=== PATIENT | male | born 1935 | race Caucasian/White ===

== ENCOUNTER 2025-04-22 14:23 | Outpatient (CLI) | payer OTHER, SELFPAY ==
--- NOTE | ~2025-04-22 | CT_ITS ---
CT sinus wo con Ordering provider: Shaw So M.D. History: . 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 Comparison: None. Technique: Thin slice Scans CT of the paranasal sinuses was performed with coronal and sagittal refor matted images. No IV contrast. . Automated exposure control and iterative reconstruction technique w ere employed. The dose-length product was 320.10 mGy-cm. Findings: NASAL SEPTUM: midline. OSTEOMEATAL UNITS: Bilaterally patent. 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 PARANASAL SINUSES: Minimal mucosal thickening in the right maxillary sinus. 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 VISUALIZED MASTOIDS: Normal as visualized. BONES: Normal. SUPERFICIAL SOFT TISSUES/VISUALIZED BRAIN PARENCHYMA: Normal. 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 Right maxillary sinus disease. Reviewed, dictated and finalized at location A.
--- OUTSIDE RECORDS SUMMARY | 2025-04-22 14:33 | XMS_ITS | Clinical Summary ---
Author Organization [facility] Address [address] [place] [id number] Care Team Providers Care Sustainability Purchasing Agent Name Role Phone Sowmya Esquivel MD Primary Care Provide r Hansel Moon MD Unavailable [phone] Malik Zazueta MD Unavailable [phone] Josiah Sauceda MD Unavailable Allergies Active Allergy Reactions Criticality Noted Date Comments Anti-Allergy Medication Vision changes Medium 07/09/20 22 Blurred vision Cetirizine Headache Low 03/18/2023 Codeine Rash Medium Medications calcium citrate 250 mg calcium tablet tablet Take 2.52 tablets (630 mg total) by mouth daily Active tamsulosin (FLOMAX) 0.4 mg extended release capsule Take 1 capsule (0.4 mg total) by mouth nightly Active fluticasone propionate (FLONASE) 50 mcg/actuation nasal spray Administer 1 spray into each nostril daily Active cyanocobalamin, vitamin B-12, 1,000 mcg tablet extended release Take 2,000 mcg by mouth nightly Active albuterol HFA (PROVENTIL HFA,VENTOLIN HFA,PROAIR HFA) 90 mcg/actuation inhaler Inhale 2 puffs 4 (four) times a day as needed for wheezing Active acetaminophen (TYLENOL) 325 mg tablet Take 2 tablets (650 mg total) by mouth every 6 (six) hours as needed for pain Active omeprazole (PriLOSEC) 40 mg capsule Take 1 capsule (40 mg total) by mouth daily Active atorvastatin (LIPITOR) 80 mg tablet Take 1 tablet (80 mg total) by mouth daily Active apixaban (ELIQUIS) 2.5 mg tablet Take 1 tablet (2.5 mg total) by mouth 2 (two) times a day 180 tablet 1 03/04/20 24 Active simethicone (Gas Relief 80, simethicone,) 80 mg chewable tablet Take 1 tablet (80 mg total) by mouth every 6 (six) hours as needed for flatulence Active cholecalciferol (VITAMIN D-3) 2000 unit tablet Take 1 tablet (2,000 Units total) by mouth daily Active ferrous sulfate 325 mg (65 mg of elemental iron) tabletIndicatio ns:Iron Deficiency Anemia Take 1 tablet (65 mg of elemental iron total) by mouth daily Active amiodarone (PACERONE) 200 mg tabletIndicatio ns:Cardioversio n of Atrial Fibrillation Take 1 tablet (200 mg total) by mouth daily 90 tablet 3 07/02/20 24 Active aspirin 81 mg enteric coated tabletIndicatio ns:Myocardial Reinfarction Prevention Take 1 tablet (81 mg total) by mouth daily Active dilTIAZem CD (CARDIZEM CD) 300 mg 24 hr capsule Take 1 capsule (300 mg total) by mouth daily 30 capsule 11/25/20 24 Active potassium chloride ER (KLOR-CON) 20 mEq CR tablet Take 2 tablets (40 mEq total) by mouth daily 20 tablet 12/03/19 25 Active furosemide (LASIX) 40 mg tabletIndicatio ns:Essential hypertension Take 1 tablet (40 mg total) by mouth 2 (two) times a day 180 tablet 12/14/19 25 Active oxyCODONE (ROXICODONE) 5 mg immediate release tabletIndicatio ns:Pain Take 1 tablet (5 mg total) by mouth every 4 (four) hours as needed for pain 30 tablet 03/31/20 25 Active oxyCODONE (ROXICODONE) 5 mg immediate release tabletIndicatio ns:Pain Take 1 tablet (5 mg total) by mouth every 4 (four) hours as needed for pain 30 tablet 03/31/20 25 2024 Discontinued sulfamethoxazol e-trimethoprim (BACTRIM DS) 800-160 mg per tablet Take 1 tablet (160 mg of trimethoprim total) by mouth daily for 7 days 7 tablet 03/31/20 25 2024 Discontinued sulfamethoxazol e-trimethoprim (BACTRIM DS) 800-160 mg per tablet Take 1 tablet (160 mg of trimethoprim total) by mouth daily for 7 days 7 tablet 03/31/20 25 2024 Active Problems Problem Noted Date Diagnosed Date Impotence of organic origin 02/24/2025 Penoscrotal webbing 02/24/2025 Hydrocele 02/24/2025 Other low back pain 01/19/2025 Other seborrheic keratosis 01/17/2025 Spinal stenosis, cervical region 10/19/2024 Tachycardia-bradycardia syndrome 10/19/2024 Atherosclerotic heart diseas e of [place] coronary artery without angina pectoris 10/14/2024 Benign essential hypertension 10/14/2024 Assessment & Plan (11/23/2024 8:47 AM POULTRY TRIMMER): Stable continue Lasix Gastroesophageal reflux disease 10/14/2024 Obstructive sleep apnea syndrome 10/14/2024 Overview (10/14/2024): Aug 25, 2017 Entered By: HERMINIA KIRKPATRICK Comment: CPAP Actinic keratosis 08/13/2024 Allergic rhinitis 08/13/2024 Benign neoplasm of colon 08/13/2024 Overview (08/13/2024): Feb 24, 2018 Entered By: HERMINIA KIRKPATRICK Comment: remote prior to 2002Feb 24, 2018 Entered By: HERMINIA KIRKPATRICK Comment: colo 2012 - no polyps [place] 08/13/2024 Edema, unspecified 08/13/2024 Exposure to potentially hazardous substance 08/01 Ingrowing nail 08/13/2024 Iron deficiency anemia 08/13/2024 Neoplasm of unspecified beha vior of bone, soft tissue, and skin 08/13/2024 Patient's other noncomplianc e with medication regimen for other reason 08/13/2024 Prediabetes 08/13/2024 Shoulder pain 08/13/2024 Spinal stenosis 08/13/2024 Spondylolysis of cervical spine 08/13/2024 Overview (08/13/2024): Dec 08, 2018 Entered By: HERMINIA KIRKPATRICK Comment: neurosurgery eval - would be big surgery - last resort Sprain of right thumb 08/13/2024 Stable angina 08/13/2024 Tinea unguium 08/13/2024 Vitamin D deficiency 08/13/2024 Acute kidney injury 06/11/2024 Assessment & Plan (06/11/2024 10:42 PM CDT): New concern Not at goal Repeat cmp in 2 weeks along with urinalysis and albumin cr urine ratio Paroxysmal atrial fibrillation 05/29/2024 Assessment & Plan (06/10/2024 12:53 PM CDT): S/p cardioversion Continue management as per cardiology Acute on chronic diastolic heart failure 024 Atrial flutter 03/04/2024 Bronchitis 02/18/2024 Bloody sputum 02/18/2024 Chronic atrial fibrillation 01/14/2024 Assessment & Plan (03/09/2025 12:32 PM CDT): Chronic Stable Continue rate control and AC Continue following with cardiology for management Assessment & Plan (10/14/2024 2:34 PM POULTRY TRIMMER): >>ASSESSMENT AND PLAN FOR PERSISTENT ATRIAL FIBRILLATION (HCC) WRITTEN ON 03/08/2024 12:01 PM BY SOWMYA ESQUIVEL MD Chronic Stable Continue rate control and AC Continue following with cardiology for management Assessment & Plan (10/14/2024 2:34 PM POULTRY TRIMMER): >>ASSESSMENT AND PLAN FOR PERSISTENT ATRIAL FIBRILLATION (HCC) WRITTEN ON 09/07/2024 9:57 PM BY SOWMYA ESQUIVEL MD Chronic Stable Continue rate control and AC Continue following with cardiology for management Assessment & Plan (01/25/2024 9:15 PM POULTRY TRIMMER): Continue following with cardiology for management On eliquis as per cardiology Laryngopharyngeal reflux (LPR) 09/03/2023 Assessment & Plan (09/03/2023 3:18 PM CDT): Continue omeprazole in the morning Start Pepcid 40 mg at bedtime Flonase 2 sprays into each nostril while looking down over the sink, do not sniff in or blow nose after use for at least 30 minutes daily 50 ounces of caffeine free and soda free fluid daily Other chronic sinusitis 09/03/2023 Assessment & Plan (03/10/2025 2:05 PM CDT): Chronic stable Referred to ENT in the past Assessment & Plan (01/26/2024 2:04 PM POULTRY TRIMMER): CT of the sinus reviewed No acute sinus infection Will refer to ENT, would like to see Dr. Wolf in [place] Assessment & Plan (09/03/2023 6:06 PM CDT): Continue omeprazole in the morning Start Pepcid 40 mg at bedtime Flonase 2 sprays into each nostril while looking down over the sink, do not sniff in or blow nose after use for at least 30 minutes daily 50 ounces of caffeine free and soda free fluid daily Erectile dysfunction 04/23/2023 Assessment & Plan (04/23/2023 4:26 PM CDT): Declines viagra and cialis as he has some at home without improvement Will refer to urology for further recommendations Bilateral carotid artery stenosis 03/28/2023 Assessment & Plan (04/22/2024 1:37 PM CDT): Bilateral carotid artery stenosis maintains compliance with medications remains asymptomatic. Follow-up in 1 year with carotid duplex. Assessment & Plan (03/08/2024 12:03 PM CDT): Stable / clinically quiescent. Will continue to monitor. Follows with vascular surgery Assessment & Plan (10/09/2023 2:42 PM POULTRY TRIMMER): Moderate 50-69% stenosis of bilateral carotid arteries. Continue risk factor modification with ASA statin therapy in good blood pressure control. Follow-up in 6 months. Assessment & Plan (06/11/2023 7:06 AM CDT): Stable / clinically quiescent. Will continue to monitor. Follows with cardiology Assessment & Plan (03/28/2023 1:46 PM CDT): History of moderate bilateral carotid stenosis. He maintains compliance with medications. Continues to deny any slurred speech, amaurosis fugax or unilateral neurological deficits. Plan: Follow-up in 6 months with carotid duplex. Chronic pain of right knee 03/21/2023 Assessment & Plan (12/06/2023 9:18 PM POULTRY TRIMMER): Worsening Recommend following up with pain management Assessment & Plan (04/03/2023 12:04 PM CDT): Xray showed arthritis Physical therapy in the past did not help Cannot do nsaids since he is on asa and plavix No improvement with tylenol arthritis Will place referral to pain management for possible injections F/u prn Assessment & Plan (03/21/2023 11:34 AM CDT): Worsening Will get xrays of the knee Already did physical therapy If xray unremarkable will do mri and possibly send to ortho F/u in 2 weeks Dizziness 01/14/20[address] lung nodules on CT 09/21/2022 Overview (03/09/2025): Resolved on ct in 03/2023 Acute blood loss anemia 09/21/2022 GI bleed 09/21/2022 GIB (gastrointestinal bleeding) 09/20/2022 AAA (abdominal aortic aneurysm) without rupture 08/30/2022 Assessment & Plan (03/09/2025 12:31 PM CDT): S/p repair Continue medical management Continue following with [facility] surgery Assessment & Plan (11/23/2024 8:47 AM POULTRY TRIMMER): Status post endovascular abdominal aortic aneurysm repair, doing well with no evidence of endoleak on his imaging. Continue ongoing surveillance with repeat aortoiliac duplex in 1 year. Assessment & Plan (04/22/2024 1:36 PM CDT): Status post repair currently measuring 5.6 cm on CTA 04/08/2024. No evidence of leak on CTA. Follow up in 6 months for routine surveillance with abdominal pelvic CTA. Assessment & Plan (03/08/2024 12:03 PM CDT): S/p repair Continue medical management Continue following with cardiology. Assessment & Plan (06/11/2023 7:05 AM CDT): S/p repair Continue medical management Continue following with cardiology. Assessment & Plan (09/05/2022 4:50 PM CDT): S/p repair Continue medical management Continue following with cardiology. Has appointment in October. H/O placement of stent in an terior descending branch of left coronary artery 08/02/2022 Assessment & Plan (03/08/2024 12:02 PM CDT): Stable Continue following with cardiology Assessment & Plan (06/12/2023 11:39 AM CDT): Stable Continue following with cardiology Coronary artery disease of n ative artery of [place] heart with stable angina pectoris 08/01/2022 Assessment & Plan (03/09/2025 12:33 PM CDT): S/p 3 stents Continue ASA and plavix Continue medication management Continue following with cardiology Assessment & Plan (03/08/2024 12:02 PM CDT): S/p 3 stents Continue ASA and plavix Continue medication management Continue following with cardiology Assessment & Plan (06/11/2023 7:06 AM CDT): S/p 3 stents Continue ASA and plavix Continue medication management Continue following with cardiology Assessment & Plan (12/09/2022 9:14 PM POULTRY TRIMMER): S/p 3 stents Continue ASA and plavix Continue medication management Continue following with cardiology Abnormal stress test 07/19/2022 PAD (peripheral artery disease) 07/19/2022 Assessment & Plan (03/09/2025 12:34 PM CDT): Stable / clinically quiescent. Will continue to monitor. Continue asa plavix and statin Assessment & Plan (09/07/2024 9:57 PM CDT): Stable / clinically quiescent. Will continue to monitor. Continue asa plavix and statin Assessment & Plan (03/08/2024 12:02 PM CDT): Stable / clinically quiescent. Will continue to monitor. Continue asa plavix and statin Assessment & Plan (06/11/2023 7:07 AM CDT): Stable / clinically quiescent. Will continue to monitor. Continue asa plavix and statin Mixed hyperlipidemia 03/29/2022 Assessment & Plan (03/09/2025 12:34 PM CDT): Stable / clinically quiescent. Will continue to monitor. Continue atorvastatin Assessment & Plan (11/23/2024 8:47 AM POULTRY TRIMMER): Stable continue Lipitor Assessment & Plan (03/08/2024 12:02 PM CDT): Stable / clinically quiescent. Will continue to monitor. Continue atorvastatin Assessment & Plan (10/09/2023 2:42 PM POULTRY TRIMMER): Stable continue Lipitor 80 mg. Assessment & Plan (06/11/2023 7:06 AM CDT): Stable / clinically quiescent. Will continue to monitor. Continue atorvastatin Assessment & Plan (12/09/2022 9:15 PM POULTRY TRIMMER): Stable / clinically quiescent. Will continue to monitor. Continue atorvastatin Palpitations 03/29/2022 Family history of coronary artery disease 2021 Cigarette nicotine dependence in remission 03/29 Aortic calcification 03/29/2022 Aneurysm of left internal iliac artery Assessment & Plan (04/22/2024 1:24 PM CDT): Stable measuring 1.5 cm Plan: Follow-up six-month CTA abdomen and pelvis Assessment & Plan (03/13/2022 12:22 PM CDT): Assessment/plan: 1.5 cm left hypogastric aneurysm. This will need lifelong surveillance. Assessment & Plan (02/06/2022 1:06 PM POULTRY TRIMMER): Assessment/plan: CT abdomen pelvis as above. If he needs intervention for his abdominal aortic aneurysm this will be addressed at the same time. Chronic bronchitis 12/27/2021 Assessment & Plan (03/09/2025 12:38 PM CDT): Stable Continue albuterol p.r.n., Tussin DM p.r.n., and breztri Assessment & Plan (12/15/2024 10:16 AM POULTRY TRIMMER): Chronic condition, stable at this time but recent acute exacerbation Recommend switching to Breztri from Advair to prevent future exacerbations. Pt advised of MOA of this medication, which is pending insurance approval. Continue PRN albuterol Consider repeat Pulm evaluation if no change. Assessment & Plan (03/08/2024 12:04 PM CDT): Stable Continue albuterol p.r.n., Tussin DM p.r.n., Advair Diskus Assessment & Plan (06/12/2023 11:41 AM CDT): Stable Continue albuterol p.r.n., Tussin DM p.r.n., Advair Diskus Assessment & Plan (12/27/2021 11:03 AM POULTRY TRIMMER): Stable Continue albuterol p.r.n., Tussin DM p.r.n., Advair Diskus Abdominal aortic aneurysm (AAA) 12/27/2021 Overview (08/13/2024): Aug 29, 2022 Entered By: TIANNA NGUYEN Comment: 5.3 cm; Planned repair by Dr. Chavez in fall 2021. Assessment & Plan (10/09/2023 2:42 PM POULTRY TRIMMER): Status post EVAR, on his last year evaluation had no evidence of endoleak. Questionable endoleak with minimal sac expansion however not completely visualized. Continue ongoing surveillance with repeat CT abdomen pelvis in 6 months. Assessment & Plan (03/28/2023 1:44 PM CDT): History of EVAR 08/30/2022. Patient continues to recover well maintains compliance with medications. Denies any abdominal flank or back pain or claudication pain. Recent CT done at an outside facility and discussed with Dr. Jack Pritchard. No endoleak noted at the previous CT scan there is also a stable 1.5 cm aneurysms left internal iliac artery that was noted. Discussed the patient with Dr. Jack Pritchard. Plan: Follow-up in 6 months with a repeat CTA of the abdomen and pelvis for routine surveillance. Assessment & Plan (12/10/2022 5:29 PM POULTRY TRIMMER): Stable Status post an endovascular surgery Continue following with vascular surgery and continue with medical management Assessment & Plan (09/25/2022 4:35 PM CDT): Status post endovascular abdominal aortic aneurysm repair. Doing well since surgery. CTA abdomen pelvis recently done at [facility] for his GI bleed, no evidence of endoleak. We will plan for follow-up in 6 months. Assessment & Plan (04/03/2022 1:38 PM CDT): CTA showing 5.2cm aneurysm Following with Dr. Pritchard and in the process of getting surgery. Assessment & Plan (03/13/2022 12:21 PM CDT): Assessment/plan: 5.3 cm saccular infrarenal abdominal aortic aneurysm. Risks benefits alternatives to endovascular aneurysm repair were discussed with the patient. Risks including bleeding, infection, perforation, contrast induced nephropathy, embolization/thrombosis, mesenteric ischemia, pelvic lower extremity ischemia, NM, stroke and . He wished to proceed. I have consulted Dr. Chavez for cardiac risk assessment. Assessment & Plan (02/06/2022 1:06 PM POULTRY TRIMMER): Assessment/plan: Roughly 5 cm abdominal aortic aneurysm found on routine screening. CT abdomen pelvis ordered for further evaluation. I discussed management options for AAA including intervention at 5 5.5 cm. He will follow-up in 1-[address] scan. Recommend statin therapy. Assessment & Plan (12/27/2021 11:09 AM POULTRY TRIMMER): Seen on CT of the lumbar spine History of smoking increases risk Ultrasound of the abdomen ordered Encounter for wellness examination 12/27/2021 Assessment & Plan (03/09/2025 12:41 PM CDT): Labs pending [facility] 1 year for annual Assessment & Plan (03/08/2024 3:42 PM CDT): Recent lipid bmp and cbc reviewed Repeat cbc for low hgb and order a1c He [facility] F/u in 1 year for annual Assessment & Plan (12/10/2022 5:32 PM POULTRY TRIMMER): Ordered CBC, cmp, lipid, hgb a1c, TSH w/ reflex to t4 [facility] Zoster vaccine-encourage patient to go to local pharamacy F/u in 1 year for annual Assessment & Plan (12/27/2021 11:20 AM POULTRY TRIMMER): reviewed CBC, cmp Ordered lipid, hgb a1c, HIV, hep c, and TSH Flu completed Colonoscopy referral given F/u in 1 year for annual Lumbar radiculopathy 01/13/2016 Assessment & Plan (12/27/2021 11:04 AM POULTRY TRIMMER): Was recently in the hospital for back pain Given Decadron and [place] Referral to pain management given 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 04/16/2015 Chronic pain 04/16/2015 Assessment & Plan (03/09/2025 12:37 PM CDT): Cont following with pain management Assessment & Plan (02/24/2025 12:59 PM CDT): Follows with pain management Going for spinal cord stimulation Assessment & Plan (12/27/2021 11:04 AM POULTRY TRIMMER): Due to cervical disc herniation and lumbar radiculopathy Referral to pain management given Osteoarthritis of cervical spine without myelopa thy 04/16/2015 Assessment & Plan (12/27/2021 11:03 AM POULTRY TRIMMER): Stable Continue with naproxen as needed Impingement syndrome of shoulder region 04/16/20 15 Fatigue 04/11/2015 Assessment & Plan (06/12/2023 11:43 AM CDT): resolved Glaucoma 04/11/2015 Wears eyeglasses 04/11/2015 Wears dentures 04/11/2015 Essential hypertension 04/11/2015 Assessment & Plan (03/10/2025 1:58 PM CDT): Bp in the office today BP Readings from Last 1 Encounters: 03/10/25 110/78 Continue current regimen of hctz 25mg daily metoprolol 25mg daily Recommend DASH diet, heart-healthy lifestyle, exercise. Discussed the risks of hypertension. Follow-up in 6 months Assessment & Plan (12/15/2024 10:17 AM POULTRY TRIMMER): BP Readings from Last 3 Encounters: 12/14/24 140/58 11/26/24 130/52 11/17/24 153/59 Chronic, stable, and at goal at today's visit. Continue regimen of cardizem 300mg daily, lasix 40mg daily as Rx. Recommend heart-healthy diet and regular exercise advanced as tolerated with ease of breathing. Assessment & Plan (09/09/2024 11:57 AM CDT): Bp in the office today BP Readings from Last 1 Encounters: 09/09/24 126/66 Continue current regimen of hctz 25mg daily metoprolol 25mg daily Recommend DASH diet, heart-healthy lifestyle, exercise. Discussed the risks of hypertension. Follow-up in 6 months Assessment & Plan (06/11/2024 10:44 PM CDT): Bp in the office today BP Readings from Last 1 Encounters: 06/11/24 116/56 Continue current regimen of hctz 25mg daily metoprolol 25mg daily Recommend DASH diet, heart-healthy lifestyle, exercise. Discussed the risks of hypertension. Follow-up in 6 months Assessment & Plan (03/08/2024 3:28 PM CDT): Bp in the office today BP Readings from Last 1 Encounters: 03/08/24 120/60 Continue current regimen of hctz 25mg daily metoprolol 25mg daily Recommend DASH diet, heart-healthy lifestyle, exercise. Discussed the risks of hypertension. Follow-up in 6 months Assessment & Plan (06/12/2023 11:40 AM CDT): Bp in the office today BP Readings from Last 1 Encounters: 06/12/23 160/72 Continue current regimen of hctz 25mg daily metoprolol 25mg daily Recommend DASH diet, heart-healthy lifestyle, exercise. Discussed the risks of hypertension. Follow-up in 6 months Assessment & Plan (12/10/2022 5:30 PM POULTRY TRIMMER): Bp in the office today BP Readings from Last 1 Encounters: 09/27/22 124/78 Continue current regimen Recommend DASH diet, heart-healthy lifestyle, exercise. Discussed the risks of hypertension. Follow-up in 6 months Assessment & Plan (08/06/2022 10:08 PM CDT): Bp in the office today BP Readings from Last 1 Encounters: 08/06/22 126/72 Continue current regimen Recommend DASH diet, heart-healthy lifestyle, exercise. Discussed the risks of hypertension. Assessment & Plan (04/03/2022 1:37 PM CDT): Bp in the office today BP Readings from Last 1 Encounters: 04/03/22 132/80 Continue current regimen of HCTZ 25mg daily Recommend DASH diet, heart-healthy lifestyle, exercise. Discussed the risks of hypertension. Assessment & Plan (03/13/2022 12:22 PM CDT): Hydrochlorothiazide Assessment & Plan (02/06/2022 1:07 PM POULTRY TRIMMER): Assessment/plan: Hydrochlorothiazide Assessment & Plan (12/27/2021 11:20 AM POULTRY TRIMMER): Bp in the office today BP Readings from Last 1 Encounters: 12/27/21 130/76 at goal Continue current regimen of Hydrochlorothiazide 25 mg Recommend DASH diet, heart-healthy lifestyle, exercise. Discussed the risks of hypertension. F/u in 3 months Productive cough 04/11/2015 Assessment & Plan (12/06/2023 9:18 PM POULTRY TRIMMER): New concern Not at goal Covid and flu negative Start z pack Recommend fluids, rest, humidification if needed. He was instructed to call back if symptoms do not improved in a week, or if worsening ones arise. Education provided. F/u prn RILEY (dyspnea on exertion) 04/11/2015 Heartburn 04/11/2015 Assessment & Plan (12/27/2021 11:05 AM POULTRY TRIMMER): Stable / clinically quiescent. Will continue to monitor. Continue omeprazole 40 mg daily Hiatal hernia 04/11/2015 Assessment & Plan (03/08/2024 3:44 PM CDT): Chronic Worsening symptoms Interested in a referral to surgery Referral palced Assessment & Plan (12/27/2021 11:05 AM POULTRY TRIMMER): Stable / clinically quiescent. Will continue to monitor. Increased frequency of urination 04/11/2015 Arthritis 04/11/2015 Muscle pain 04/11/2015 Bruises easily 04/11/2015 Numbness and tingling sensation of skin 04/11/20 15 Cervicalgia 04/11/2015 Assessment & Plan (09/05/2022 4:54 PM CDT): worsening Tramadol sent to help until he gets in with pain management on Friday Myocardial ischemia Gastroesophageal reflux disease without esophagi tis Assessment & Plan (03/08/2024 12:03 PM CDT): Stable Continue omeprazole Assessment & Plan (06/11/2023 7:08 AM CDT): Stable Continue omeprazole Assessment & Plan (12/09/2022 9:16 PM POULTRY TRIMMER): Stable Continue omeprazole Benign prostatic hyperplasia with nocturia Assessment & Plan (03/09/2025 12:36 PM CDT): stable Continue flomax as per urology Assessment & Plan (06/12/2023 11:41 AM CDT): stable Continue flomax Obstructive sleep apnea on CPAP Assessment & Plan (03/09/2025 12:40 PM CDT): Stable Continue cpap Assessment & Plan (03/08/2024 12:05 PM CDT): Stable Continue cpap Moderate persistent asthma without complication Assessment & Plan (03/08/2024 12:04 PM CDT): Continue albuterol as needed Assessment & Plan (06/11/2023 7:08 AM CDT): Continue albuterol as needed Assessment & Plan (12/10/2022 5:31 PM POULTRY TRIMMER): Continue albuterol as needed Class 1 obesity due to exces s calories with serious comorbidity and body mass index (BMI) of 33.0 to 33.9 in adult Assessment & Plan (02/24/2025 3:47 PM CDT): He was counseled on the importance of maintaining a healthy weight and the risks of obesity. Weight loss recommended. Assessment & Plan (08/13/2024 3:36 PM CDT): Wt Readings from Last 3 Encounters: 08/13/24 100.8 kg (222 lb 4.8 oz) 07/02/24 100.7 kg (222 lb) 06/11/24 99.7 kg (219 lb 12.8 oz) Body mass index is 31.9 kg/m . -Stable, not at goal of <30 bmi -Discussed recommendations for exercise at least 30 minutes moderate to vigorous exercise as tolerated most days of the week. (minimum 150 minutes weekly) -Discussed importance of well-balanced diet Assessment & Plan (06/11/2023 7:08 AM CDT): He was counseled on the importance of maintaining a healthy weight and the risks of obesity. Weight loss recommended. Encourage 150min/ week of exercise Encourage 1500 calories in a day for weight loss History of asbestosis Overview (05/21/2024): History of asbestosis - (Added by TW Conv) Obesity (BMI 30-39.9) Resolved Problems Problem Noted Date Diagnosed Date Resolved Date Preop examination 02/24/2025 03/09/2025 Assessment & Plan (02/24/2025 4:05 PM CDT): He understands that no procedure is risk-free but accepts those as discussed during OV and wishes to proceed. He was instructed to contact us if any new symptoms or problems arise between now and surgery date. According to the RCRI, the patient's number of risk factors stratifies patient to class I, which carries a 6% risk of major cardiovascular complications Recent labs reviewed stable He is medically optimized for surgery. This clearance is valid for the next 30 days from today He will need clearance from his radar tester Obesity 10/19/2024 03/09/2025 Erectile dysfunction 10/14/2024 025 Overview (10/14/2024): Sep 16, 2022 Entered By: TIANNA NGUYEN Comment: on isosorbide. Cannot take PDE5- i Hyperlipidemia 10/14/2024 03/09/2025 Unspecified atrial fibrillation 10/14/2024 10/14/2024 Benign prostatic hyperplasia 08/13/2024 03/09/2025 Prediabetes 08/13/2024 03/09/2025 Essential (primary) hypertension 03/04/2024 03/09/2025 COPD exacerbation 01/15/2024 03/09/2025 Lower respiratory infection 04/03/2023 03/09/2025 Assessment & Plan (08/14/2024 11:56 AM CDT): -new complaint, one-week onset -patient reports symptoms of congestion, sinus pressure, fatigue, malaise, rattle in chest, productive cough with yellow to brown phlegm -denies significant shortness of breath, fever, headache, earache -OTC medication provided minimal relief -chest x-ray ordered for evaluation of infectious process -Augmentin Z-Silvino prescribed -Tessalon Perles and prednisone course prescribed for cough and wheezing -encouraged patient to reach out to office if not improved -continue current treatment plan Assessment & Plan (04/03/2023 12:05 PM CDT): S/p [address] referral to ENT F/u prn URI with cough and congestion 03/12/2023 03/09/2025 Assessment & Plan (03/21/2023 11:26 AM CDT): S/p z pack Wheezing on exam Instructed to take his inhaler advair two times a day but also do the albuterol every 6 hours for a day and then go to as needed Sent augmentin to the pharmacy twice a day for 10 days F/u prn Assessment & Plan (03/12/2023 11:02 AM CDT): Recommend fluids, rest, humidification if needed. He was instructed to call back if symptoms do not improved in a week, or if worsening ones arise. Education provided. covid and flu swab negative Azithromycin sent to [facility] given lung exam F/u in 1 week Hospital discharge follow-up 09/05/2022 02/24/2025 Assessment & Plan (01/25/2024 9:15 PM POULTRY TRIMMER): Med list reviewed problem list reviewed Follow up appointments discussed Assessment & Plan (09/05/2022 4:51 PM CDT): Med list reviewed problem list reviewed Follow up appointments discussed Encounter for pre-operative cardiovascular clearance 08/06/2022 03/09/2025 Assessment & Plan (08/06/2022 10:09 PM CDT): Medications reviewed and up to date Arteriosclerosis of coronary artery 08/01/2022 10/14/2024 Overview (08/13/2024): Aug 29, 2022 Entered By: TIANNA NGUYEN Comment: PCI to proximal-mid LAD - Dr. Aguiar Prostate enlargement 12/27/2021 025 Assessment & Plan (12/27/2021 11:07 AM POULTRY TRIMMER): Stable / clinically quiescent. Will continue to monitor. Continue tamsulosin 0.4 mg nightly Itch 04/11/2015 03/09/2025 Encounters Date Type Department Care Team Description 04/13/2025 1:00 PM CDT Clinical Support [facility] Cardiology [facility] [address] [phone] Coronary artery disease of [place] artery of [place] heart with stable angina pectoris (Primary Dx); Atrial fibrillation with rapid ventricular response (HCC); Infrarenal abdominal aortic aneurysm (AAA) without rupture; Acute on chronic diastolic heart failure (HCC) 04/05/2025 Telephone [facility] Cardiology [facility] [address] [phone] Hansel Moon MD 03/31/2025 2:05 PM CDT Anesthesia Event [facility] Operating Room [facility] [place] [address] Dana Lan MD 03/31/2025 1:10 PM CDT - 03/31/2025 4:10 PM CDT Surgery [facility] Operating Room [facility] [place] [address] Josiah Sauceda MD Insertion of Malleable Penile Prosthesis 03/31/2025 11:41 AM CDT - 04/02/2025 3:06 PM CDT Hospital Encounter [address] [phone] Josiah Sauceda MD Discharge Disposition: Discharge to home or self care 03/22/2025 12:56 PM CDT - 03/22/2025 11:59 PM CDT Hospital Encounter [address] [address] Radiculopathy, thoracic region Discharge Disposition: Discharge to home or self care 03/22/2025 Telephone [facility] Pre Anesthesia Testing [address] [place] [phone] Tianna Lowery 03/21/[address] [address] Haley Cuello 03/10/2025 2:00 PM CDT Office Visit [facility] Primary Care at [address] [place] [phone] Sowmya Pruitt MD Encounter for wellness examination (Primary Dx); Infrarenal abdominal aortic aneurysm (AAA) without rupture; Chronic atrial fibrillation (HCC); Coronary artery disease of [place] artery of [place] heart with stable angina pectoris; Essential hypertension; Mixed hyperlipidemia; PAD (peripheral artery disease); Benign prostatic hyperplasia with nocturia; Other chronic pain; Simple chronic bronchitis (HCC); Multiple lung nodules on CT; Obstructive sleep apnea on CPAP; Other chronic sinusitis 03/01/2025 1:52 PM CDT - 03/01/2025 11:59 PM CDT Hospital Encounter [facility] [address] [place] [phone] Pre-op evaluation Discharge Disposition: Discharge to home or self care 03/01/2025 1:45 PM CDT - 03/01/2025 11:59 PM CDT Hospital Encounter [facility] Cardiology [address] [place] [phone] Rickettsialpox due to rickettsia akari Discharge Disposition: Discharge to home or self care 03/01/2025 1:40 PM CDT Lab [address] [phone] 02/24/2025 3:30 PM CDT Office Visit [facility] Medical [facility] Primary Care at [address] [phone] Sowmya Pruitt MD Preop examination (Primary Dx); Other chronic pain; Class 1 obesity due to excess calories with serious comorbidity and body mass index (BMI) of 33.0 to 33.9 in adult 02/22/2025 Telephone [facility] Primary Care at [address] [phone] Claduia Martinez MA Medical Question/Miscellaneous 01/31/2025 12:25 PM POULTRY TRIMMER Lab [address] [phone] Coronary artery disease of [place] artery of [place] heart with stable angina pectoris; Atrial fibrillation with rapid ventricular response (HCC); Infrarenal abdominal aortic aneurysm (AAA) without rupture; Mixed hyperlipidemia; Benign essential hypertension; Obstructive sleep apnea syndrome; Abdominal aortic aneurysm (AAA) without rupture, unspecified part 01/31/2025 Orders Only [facility] Cardiology [address] [place] [phone] Hansel Moon MD Coronary artery disease of [place] artery of [place] heart with stable angina pectoris (Primary Dx); Atrial fibrillation with rapid ventricular response (HCC); Infrarenal abdominal aortic aneurysm (AAA) without rupture; Mixed hyperlipidemia; Benign essential hypertension; Obstructive sleep apnea syndrome; Abdominal aortic aneurysm (AAA) without rupture, unspecified part 01/31/2025 Telephone [facility] Cardiology [address] [place] [phone] Hansel Moon MD 01/28/2025 4:00 PM POULTRY TRIMMER Lab [facility] Lab [address] [place] [phone] 01/28/2025 12:04 PM POULTRY TRIMMER - 01/28/2025 11:59 PM POULTRY TRIMMER Hospital Encounter [facility] Nuclear Medicine [address] [place] [phone] Discharge Disposition: Discharge to home or self care 01/28/2025 12:04 PM POULTRY TRIMMER - 01/28/2025 11:59 PM POULTRY TRIMMER Hospital Encounter [facility] Nuclear Medicine [address] [place] [phone] Discharge Disposition: Discharge to home or self care 01/28/2025 12:04 PM POULTRY TRIMMER - 01/28/2025 11:59 PM POULTRY TRIMMER Hospital Encounter [facility] Nuclear Medicine [address] [place] [phone] Discharge Disposition: Discharge to home or self care 01/28/2025 12:04 PM POULTRY TRIMMER - 01/28/2025 11:59 PM POULTRY TRIMMER Hospital Encounter [facility] Nuclear Medicine [address] [place] [phone] Coronary artery disease of [place] artery of [place] heart with stable angina pectoris; Atrial fibrillation with rapid ventricular response (HCC); Infrarenal abdominal aortic aneurysm (AAA) without rupture; Acute on chronic diastolic heart failure (HCC); Mixed hyperlipidemia; Benign essential hypertension; Obesity (BMI 30-39.9); Obstructive sleep apnea syndrome; Preoperative cardiovascular examination Discharge Disposition: Discharge to home or self care from Last 3 Months Immunizations Immunization Administration Dates Next Due COVID-19 MRNA (MODERNA) .5 M L (50 MCG) VACCINE (12 YEARS AND UP) 09/17/2023 Influenza, Quad, Adjuvantate d, Intramuscular 09/16/2022,09/13/2021 Influenza, Quadrivalent, Hig h Dose, Preservative Free, Intrr 09/17/2023 Influenza, Quadrivalent, Spl it, Preservative Free, Intramuscular 08/24/2019,08/26/2018 Influenza, Trivalent, High D ose, Split, Preservative Free, Intramuscular 09/09/2024,08/25/2017 Influenza, Trivalent, Preser vative Free, Intramuscular 08/23/2016,08/24/2015 Influenza, Unspecified 10/01/2022,2021(Deferred: Patient Refused),08/06/2022(Deferred: Patient Refused),08/31/2021,09/26/2014, 013,09/01/2012,08/31/2008,08/31/2007,1 01/15/2006,11/28/2003 Moderna SARS-CoV-2 Monovalen t Vaccination (12+ YRS) 03/03/2021,02/04/2021 Pneumococcal Conjugate PCV 13 02/14/2015 Pneumococcal Conjugate, Unspecified 08/06/2022(D eferred: Patient Refused) Pneumococcal, Unspecified 02/20/2004 Td, Unspecified 09/26/2014,06/28/2004 Tdap 09/16/2022 ZOSTER LIVE 11/07/2016 ZOSTER Recombinant 04/20/2018,01/18/2017 Surgical History Surgery Date Site/Laterality Comments UT APPENDECTOMY Appendectomy - (Added by TW Conv) UT NEUROPLASTY &/TRANSPOS MEDIAN NRV CARPAL TUNNE Neuroplasty Decompression Median Nerve At Carpal Tunnel - (Added by TW Conv) ROTATOR CUFF REPAIR Rotator Cuff Repair - bilater (Added by TW Conv) GALLBLADDER SURGERY CYST REMOVAL on neck and leg NOSE SURGERY broken ABDOMINAL SURGERY Bilateral mesh , hernia repair CORONARY ANGIOPLASTY WITH STENT PLACEMENT 07/01/2022 - 07/31/2022 with 3 stent placed REPAIR THORACIC AORTA Medical History Medical History Date Comments Gastroesophageal reflux disease GERD Osteoarthritis Osteoarthritis Hypertension Hypertension Hyperlipidemia Hyperlipidemia Disorder of liver Liver disease Personal history of other di seases of the respiratory system History of bronchitis - (Add ed by TW Conv) Contact with and (suspected) exposure to asbestos Asbestos exposure - (Added b y TW Conv) Personal history of other di seases of the respiratory system History of asbestosis - (Add ed by TW Conv) Asthma Prostate enlargement Ringing in ears Sinus problem Hernia of anterior abdominal wall Rhinitis URI (upper respiratory infection) Sleep apnea wears cpap Wears dentures Ambulates with cane Enlarged prostate Pulmonary nodules ED (erectile dysfunction) Obesity (BMI 30-39.9) Atrial flutter (HCC) Anesthesia complication woke up suddenly after anesthesia History of asbestosis Family History Medical History Relation Name Comments Cancer Brother 1 lung Heart disease Brother 2 open heart arminda jorge Heart disease Brother 3 stent Heart disease Father Heart failure Father Heart disease Other 1 Family history of Heart disease; Hypertension Other 2 Family history of Hypertension; Cancer Sister lung Relation Name Status Comments Brother 1 Brother 2 Alive Brother 3 Alive Father Mother Other 1 Other 2 Sister Social History Tobacco Use Types Packs/Day Years Used Date Smoking Tobacco: Never Passive Smoke Exposure: Never Smokeless Tobacco: Never Tobacco Cessation:Counseling Given: Yes Alcohol Use Standard Drinks/Week Comments No 0 (1 standard drink = 0.6 oz pur e alcohol) [facility] Utilities Answer Date Recorded In the past 12 months has th e electric, gas, oil, or water company threatened to shut off services in your home? No 05/27/2024 Social Connection and Isolat ion Panel [NHANES] Answer Date Recorded In a typical week, how many times do you talk on the phone with family, friends, or neighbors? More than three times a week 05/27/2024 How often do you get togethe r with friends or relatives? More than three times a week 05/27/2024 How often do you attend chur ch or druze services? Never 05/27/2024 Do you belong to any clubs o r organizations such as islam groups, unions, fraternal or athletic groups, or school groups? Yes 05/27/2024 How often do you attend meet ings of the clubs or organizations you belong to? More than 4 times per year 05/27/2024 Are you , , di vorced, , never , or living with a partner? 05/27/2024 AUDIT-C Answer Date Recorded Q1: How often do you have a drink containing alcohol? Never 03/31/2025 Q2: How many drinks containi ng alcohol do you have on a typical day when you are drinking? Patient does not drink Q3: How often do you have si x or more drinks on one occasion? Never 03/31/2025 Overall Financial Resource Strain (CARDIA) Answe r Date Recorded How hard is it for you to pa y for the very basics like food, housing, medical care, and heating? Not very hard 05/27/2024 PHQ-2 Answer Date Recorded PHQ-2 Total Score (If total score is 3 or more points, staff should administer the PHQ-9) 0 03/10/2025 Hunger Vital Sign Answer Date Recorded Within the past 12 months, y ou worried that your food would run out before you got the money to buy more. Never true 05/27/20 24 Within the past 12 months, t he food you bought just didn't last and you didn't have money to get more. Never true 05/27/2024 PRAPARE - Transportation Answer Date Re corded In the past 12 months, has l ack of transportation kept you from medical appointments or from getting medications? No 05/02 In the past 12 months, has l ack of transportation kept you from meetings, work, or from getting things needed for daily living? No 05/27/2024 Housing Stability Vital Sign Answer Justin e Recorded In the last 12 months, was t here a time when you were not able to pay the mortgage or rent on time? No 01/26/2024 In the last 12 months, how many places have you lived? 1 01/26/2024 In the last 12 months, was t here a time when you did not have a steady place to sleep or slept in a jail (including now)? No 01/26/2024 Housing Stability Vital Sign Answer Justin e Recorded In the last 12 months, was t here a time when you were not able to pay the mortgage or rent on time? No 05/27/2024 In the past 12 months, how m any times have you moved where you were living? 0 05/27/2024 At any time in the past 12 m [facility], were you homeless or living in a jail (including now)? No 05/27/2024 Personal Safety Answer Date Recorded Have you ever been in or are you currently in a harmful physical or emotional relationship or is someone making you feel afraid or unsafe? Denies 03/31/2025 Education Answer Date Recorded What is the highest level of school you have completed or the highest degree you have received? GED or equivalent Sex and Gender Information Value Date Recorded Sex Assigned at Not on file Legal Sex Male 2:57 AM POULTRY TRIMMER Gender Identity Not on file Sexual Orientation Not on file Obstetrics History Last Filed Vital Signs Vital Sign Reading Time Taken Comments Blood Pressure 135/65 04/02/2025 12:45 PM CDT Pulse 60 04/02/2025 12:45 PM CDT Temperature 36.6 C (97.9 F) 04/02/2025 12:26 PM CDT Respiratory Rate 15 04/02/2025 12:4 5 PM CDT Oxygen Saturation 99% 04/02/2025 12: 45 PM CDT Inhaled Oxygen Concentration - - Weight 99.7 kg (219 lb 12.8 oz) 025 12:20 PM CDT Height 177.8 cm (5' 10 ) 03/31/2025 12: 20 PM CDT Body Mass Index 31.54 03/31/2025 12:20 PM CDT Plan of Treatment Health Maintenance Due Date Last Done Comments Hepatitis B Screening 1953 Pneumococcal vaccine 65+ (2 of 2 - PPSV23) 09/09/2025 02/14/2015, 02/20/2004 Postponed from 04/11/2015 (Patient declined, but will receive in the future) Covid-19 Vaccine ( season) 2026 09/17/2023, 06/18/2022, 11/15/2021, Additional history exists Postponed from 08/01/2024 (Patient declined, but will receive in the future) Depression Screening 03/10/2026 03/10/2025, 02/24/2025, 09/09/2024, Additional history exists Well Visit 65+ 03/10/2026 03/10/2025, 04/0 07/2024, 12/10/2022, Additional history exists Fall Risk Assessment 04/02/2026 04/02/2025, 03/10/2025, 02/24/2025, Additional history exists DTaP/Tdap/Td Vaccine (2 - Td or Tdap) 09/16/2032 09/16/2022, 09/26/2014, 06/28/2004 Zoster Vaccine Completed 04/20/2018, 01/01, 11/07/2016 Influenza Vaccine Completed 09/09/2024, , 10/01/2022, Additional history exists Medical Devices Implanted Type Area Plate Glass Installer Device Identifier Shelf Expiration Date Model / Serial / Lot [employer] Excluder 16mm 13.5-14.5mm 11.5cm Stent Abrasion Resistant [id number] - [id number] - [id number] Implanted:Qty : 1 on 08/30/2022 by Jack Pritchard MD at [facility] Endoprosthesis Left: Iliac [employer] [id number] 05/04/2025 [id number] / [id number] / [employer] Excluder 18mm 14.5-16.5mm 9.5cm Stent Abrasion Resistant [id number] - [id number] - [id number] Implanted:Qty : 1 on 08/30/2022 by Jack Pritchard MD at [facility] Endoprosthesis Right: Iliac [employer] [id number] 07/20/2025 [id number] / [id number] / [employer] Excluder 14.5mm 28.5mm 12cm 5.5cm Conformable Active Control Trunk [id number] - [id number] - [id number] Implanted:Qty : 1 on 08/30/2022 by Jack Pritchard MD at [facility] Endoprosthesis N/A: Aorta [employer] [id number] 06/09/2025 [id number] / [id number] / [employer] Richy Prosthesis Penile Tactra Od11mm Malleable Sterile Latex Free [id number] - Sn/A - [id number] Implanted:Qty : 1 on 03/31/2025 by Josiah Sauceda MD at [facility] Other - see comments N/A: Penis [employer] Richy [id number] 08/31/2029 [id number] / N/A / [id number] Description:Penile Implant [employer] Resolute [place] 2.5mm 2.1-2.7fr 30mm 140cm Rapid Exchange [id number] - [id number] Implanted:Qty : 1 on 08/01/2022 by Nicolas Aguiar MD at [facility] [employer] 01/08/2025 [id number] / / [id number] [employer] Resolute [place] 3mm 2.1-2.7fr 30mm 140cm Rapid Exchange Radiopaque [id number] - [id number] Implanted:Qty : 1 on 08/01/2022 by Nicolas Aguiar MD at [facility] [employer] 01/28/2025 [id number] / / [id number] [employer] Resolute [place] 3mm 2.1-2.7fr 8mm 140cm Rapid Exchange Radiopaque 1 [id number] - [id number] Implanted:Qty : 1 on 08/01/2022 by Nicolas Aguiar MD at [facility] [employer] 05/09/2024 [id number] / / [id number] [facility] Angio-Seal Vip 6fr Closere Device [id number] - [id number] Implanted:Qty : 1 on 08/01/2022 by Nicolas Aguiar MD at [facility] Rich[employer] 04/30/2023 [id number] / / [id number] [employer] Perclose 6fr Vascular Closure 64878-20 - [id number] Implanted:Qty : 1 on 08/30/2022 by Jack Pritchard MD at [facility] Left: Iliac [employer] 05/30/2024 [id number] 3 / / [employer] Perclose 6fr Vascular Closure 38828-70 - [id number] Implanted:Qty : 1 on 08/30/2022 by Jack Pritchard MD at [facility] Left: Iliac [employer] 05/30/2024 22742-8 3 / / [employer] Perclose 6fr Vascular Closure 20058-62 - [id number] Implanted:Qty : 1 on 08/30/2022 by Jack Pritchard MD at [facility] Right: Iliac [employer] 05/30/2024 53211-2 3 / / [employer] Perclose 6fr Vascular Closure 03692-33 - [id number] Implanted:Qty : 1 on 08/30/2022 by Jack Pritchard MD at [facility] Right: Iliac [employer] 05/30/2024 67335-8 3 / / Procedures Procedure Name Priority Date/Time Associated Diagnosis Comments ECG 12-LEAD Routine 04/13/2025 1:38 PM CDT Coronary artery disease of [place] artery of [place] heart with stable angina pectoris Atrial fibrillation with rapid ventricular response (HCC) 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 on chronic diastolic heart failure (HCC) UT AN PROCEDURE PLACEHOLDER Routine 03/31/2025 2:33 PM CDT UT AN ELECTIVE ENDOTRACHEAL AIRWAY Routine 03/31/2025 2:33 PM CDT HYDROCELECTOMY 03/31/2025 2:07 PM CDT Impotence of organic origin Penoscrotal webbing Hydrocele, unspecified hydrocele type EXPLORATION SCROTUM 03/31/2025 2 :07 PM CDT Impotence of organic origin Penoscrotal webbing Hydrocele, unspecified hydrocele type INSERTION PENILE PROSTHESIS 03/31/2025 2:07 PM CDT Impotence of organic origin Penoscrotal webbing Hydrocele, unspecified hydrocele type CT THORACIC SPINE WO CONTRAST Schedule Routine, Read Routine (OP Routine) 03/22/2025 2:31 PM CDT Radiculopathy, thoracic region XR CHEST PA LATERAL 2 VIEWS Schedule Routine, Read Routine (OP Routine) 03/01/2025 2:37 PM CDT Pre-op evaluation ECG 12-LEAD Routine 03/01/2025 2:25 PM CDT Rickettsialpox due to rickettsia akari EGFR Routine 03/01/2025 1:54 PM CDT DIFFERENTIAL AUTO Routine 03/01/2025 1:5 4 PM CDT URINALYSIS AND REFLEX TO MICROSCOPIC Routine 03/01/2025 1:54 PM CDT PROTIME-INR Routine 03/01/2025 1:54 PM CDT APTT Routine 03/01/2025 1:54 PM CDT ERYTHROCYTE SEDIMENTATION RATE Routine 03/01/2025 1:54 PM CDT CRP (ACUTE PHASE) Routine 03/01/2025 1:5 4 PM CDT BASIC METABOLIC PANEL Routine 03/01/2025 1:54 PM CDT CBC WITH AUTO DIFFERENTIAL Routine 03/01/2025 1:54 PM CDT EGFR Routine 01/31/2025 12:29 PM POULTRY TRIMMER Coronary artery disease of [place] artery of [place] heart with stable angina pectoris Atrial fibrillation with rapid ventricular response (HCC) Infrarenal abdominal aortic aneurysm (AAA) without rupture Mixed hyperlipidemia Benign essential hypertension Obstructive sleep apnea syndrome Abdominal aortic aneurysm (AAA) without rupture, unspecified part DIFFERENTIAL AUTO Routine 01/31/2025 12:29 PM POULTRY TRIMMER Coronary artery disease of [place] artery of [place] heart with stable angina pectoris Atrial fibrillation with rapid ventricular response (HCC) Infrarenal abdominal aortic aneurysm (AAA) without rupture Mixed hyperlipidemia Benign essential hypertension Obstructive sleep apnea syndrome Abdominal aortic aneurysm (AAA) without rupture, unspecified part THYROID FUNCTION CASCADE Routine 01/31/2025 12:29 PM POULTRY TRIMMER Coronary artery disease of [place] artery of [place] heart with stable angina pectoris Atrial fibrillation with rapid ventricular response (HCC) Infrarenal abdominal aortic aneurysm (AAA) without rupture Mixed hyperlipidemia Benign essential hypertension Obstructive sleep apnea syndrome Abdominal aortic aneurysm (AAA) without rupture, unspecified part LIPID PANEL Routine 01/31/2025 12:29 PM POULTRY TRIMMER Coronary artery disease of [place] artery of [place] heart with stable angina pectoris Atrial fibrillation with rapid ventricular response (HCC) Infrarenal abdominal aortic aneurysm (AAA) without rupture Mixed hyperlipidemia Benign essential hypertension Obstructive sleep apnea syndrome Abdominal aortic aneurysm (AAA) without rupture, unspecified part COMPREHENSIVE METABOLIC PANEL Routine 01/31/2025 12:29 PM POULTRY TRIMMER Coronary artery disease of [place] artery of [place] heart with stable angina pectoris Atrial fibrillation with rapid ventricular response (HCC) Infrarenal abdominal aortic aneurysm (AAA) without rupture Mixed hyperlipidemia Benign essential hypertension Obstructive sleep apnea syndrome Abdominal aortic aneurysm (AAA) without rupture, unspecified part CBC WITH AUTO DIFFERENTIAL Routine 01/31/2025 12:29 PM POULTRY TRIMMER Coronary artery disease of [place] artery of [place] heart with stable angina pectoris Atrial fibrillation with rapid ventricular response (HCC) Infrarenal abdominal aortic aneurysm (AAA) without rupture Mixed hyperlipidemia Benign essential hypertension Obstructive sleep apnea syndrome Abdominal aortic aneurysm (AAA) without rupture, unspecified part MAGNESIUM Routine 01/31/2025 12:29 PM POULTRY TRIMMER Coronary artery disease of [place] artery of [place] heart with stable angina pectoris Atrial fibrillation with rapid ventricular response (HCC) Infrarenal abdominal aortic aneurysm (AAA) without rupture Mixed hyperlipidemia Benign essential hypertension Obstructive sleep apnea syndrome Abdominal aortic aneurysm (AAA) without rupture, unspecified part STRESS TEST FOR DUAL READ Schedule Routine, Read Routine (OP Routine) 01/28/2025 3:55 PM POULTRY TRIMMER Coronary artery disease of [place] artery of [place] heart with stable angina pectoris Atrial fibrillation with rapid ventricular response (HCC) 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 on chronic diastolic heart failure (HCC) Mixed hyperlipidemia Benign essential hypertension Obesity (BMI 30-39.9) Obstructive sleep apnea syndrome Preoperative cardiovascular examination NM MPI SPECT (REST AND/OR STRESS) MULTIPLE STUDIES Schedule Routine, Read Routine (OP Routine) 01/28/2025 3:55 PM POULTRY TRIMMER Coronary artery disease of [place] artery of [place] heart with stable angina pectoris Atrial fibrillation with rapid ventricular response (HCC) 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 on chronic diastolic heart failure (HCC) Mixed hyperlipidemia Benign essential hypertension Obesity (BMI 30-39.9) Obstructive sleep apnea syndrome Preoperative cardiovascular examination from Last 3 Months Results * ECG 12 lead (04/13/2025 1:38 PM CDT) Hansel Moon MD ECG ORDERABLES Final Resu lt * UT AN ELECTIVE ENDOTRACHEAL AIRWAY, UT AN PROCEDURE PLACEHOLDER (03/31/2025 2:33 PM CDT) Narrative Tiffanie Quiros CRNA - 03/31/2025 2:33 PM CDT Tiffanie Quiros CRNA 03/31/2025 2:34 PM Airway Patient location: OR Urgency: elective Date/time: 03/31/2025 2:14 PM Indications for airway management: anesthesia Difficult airway: no Staff: Placed by: LOG CHIPPER: Tiffanie Quiros CRNA Emergent airway documentation: Risks and benefits discussed: yes Consent obtained: yes Consent given by: patient Airway prep: Preoxygenated: yes Patient position: sniffing MILS maintained throughout: yes Mask difficulty assessment: 1 - vent by mask Spontaneous ventilation during airway: absent Sedation level during airway: GA Final airway details: Final airway type: endotracheal airway Tube type: ETT ETT size: 8.0 mm Cuffed: yes Technique used for successful ETT placement: direct laryngoscopy Devices/Methods used in placement: stylet Insertion site: oral Blade type: Chayito Blade size: 3 Cormack-Lehane (direct): grade I - full view of glottis Cuff volume: 8 mL Cuff inflated with: air ETT to lips: 23 cm Placement verified by: auscultation and CO2 detection Airway secured with: silk tape Number of attempts: 1 Ventilation between attempts: noneno us Dana Lan MD ANESTHESIA ORDERABLES Final R esult * CT Thoracic Spine WO Contrast (03/22/2025 2:31 PM CDT) Anatomical Region Laterality Modality Spine N/A Computed Tomogra phy 03/28/2025 9:41 PM CDT Narrative 03/28/2025 9:47 PM CDT EXAM DESCRIPTION: CT THORACIC SPINE WO CONTRAST REASON FOR STUDY: Radiculopathy of, Thoracic Chronic back pain, pain stimulator inserted TECHNIQUE: Axial images acquired through the thoracic spine without intravenous contrast. Images reviewed with lung, soft tissue and bone windows. Reconstructed coronal and sagittal MPR images reviewed. Images stored on PACS. Automated exposure control was used as a dose optimization technique for this examination. COMPARISON: No direct comparison is available. Relevant portions of the chest radiograph dated 03/01/[address] dated 02/17/2024. FINDINGS: ALIGNMENT: Levoconvex upper and dextroconvex mid to lower thoracic curvature. Grade 1 anterolisthesis of C7 on T1, T1 on T2, T5 on T6 and T11 on T12. VERTEBRAE: Few scattered Schmorl's node including at T11, T12 on L1. Endplate degenerative changes and marginal spur formation ranging up to moderate to severe. DISC HEIGHT: Diffuse intervertebral disc height loss ranging up to moderate to severe. HARDWARE: None in the thoracic spine. THORACIC DISCS: Suboptimally evaluated by non myelographic CT technique. At T11-T12 there is anterolisthesis of T11 on T12 with unroofing of the disc with thickened/calcified ligamentum flavum and facet arthropathy. Suspect mild osseous spinal canal stenosis. Thickened/calcified ligamentum flavum and facet arthropathy contributing to varying degrees of osseous neural foraminal stenosis including on the right at T2-T3, T5-T6, T7-T8, T8-T9, T9-T10, T10-T11, T11-T12 and T12-L1. Left-sided osseous neural foraminal stenosis including at T1-T2, T6-T7, T7-T8, T8-T9, T9-T10, T10-T11 and T11-T12. SOFT TISSUES: Partially imaged lung parenchyma without a focal pneumonic consolidation. There is an abdominal aortic stent graft. Small hiatal hernia. Thickening of the distal esophagus can be seen with esophagitis in the proper clinical scenario. LOWER CERVICAL: Incompletely imaged. Moderate to severe degenerative changes. UPPER LUMBAR: Incompletely imaged. Moderate degenerative changes. IMPRESSION: 1. Moderate to severe thoracic spine degenerative changes. No gross high-grade osseous spinal canal stenosis. 2. Osseous neural foraminal narrowing and additional findings as above. 3. The need for further evaluation with MRI as clinically indicated. 4. Previous thoracic spine imaging is not available for comparison. 5. By history patient has a pain stimulator but not definitely visualized on this thoracic spine MRI. Request clinical correlation. THIS IS AN ELECTRONICALLY VERIFIED FINAL REPORT 03/28/2025 9:47 PM - Electronically signed by Suresh Schilling D.O. AP: AP Report ID: [id number] Reading Location: [id number] Procedure Note Suresh Schilling, DO - 03/28/2025 EXAM DESCRIPTION: CT THORACIC SPINE WO CONTRAST REASON FOR STUDY: Radiculopathy of, Thoracic Chronic back pain, pain stimulator inserted TECHNIQUE: Axial images acquired through the thoracic spine without intravenous contrast. Images reviewed with lung, soft tissue and bone windows. Reconstructed coronal and sagittal MPR images reviewed. Images stored on PACS. Automated exposure control was used as a dose optimization technique for this examination. COMPARISON: No direct comparison is available. Relevant portions of the chest radiograph dated 03/01/[address] dated 02/17/2024. FINDINGS: ALIGNMENT: Levoconvex upper and dextroconvex mid to lower thoracic curvature. Grade 1 anterolisthesis of C7 on T1, T1 on T2, T5 on T6 andT11 on T12. VERTEBRAE: Few scattered Schmorl's node including at T11, T12 on L1. Endplate degenerative changes and marginal spur formation ranging up to moderate to severe. DISC HEIGHT: Diffuse intervertebral disc height loss ranging up tomoderate to severe. HARDWARE: None in the thoracic spine. THORACIC DISCS: Suboptimally evaluated by non myelographic CT technique.At T11-T12 there is anterolisthesis of T11 on T12 with unroofing of the discwith thickened/calcified ligamentum flavum and facet arthropathy. Suspect mild osseous spinal canal stenosis. Thickened/calcified ligamentum flavum and facet arthropathy contributing to varying degrees of osseous neuralforaminal stenosis including on the right at T2-T3, T5-T6, T7-T8, T8-T9, T9-T10, T10-T11, T11-T12 and T12-L1. Left-sided osseous neural foraminal stenosis including at T1-T2, T6-T7, T7-T8, T8-T9, T9-T10, T10-T11 and T11-T12. SOFT TISSUES: Partially imaged lung parenchyma without a focal pneumonic consolidation. There is an abdominal aortic stent graft. Small hiatal hernia. Thickening of the distal esophagus can be seen with esophagitisin the proper clinical scenario. LOWER CERVICAL: Incompletely imaged. Moderate to severe degenerative changes. UPPER LUMBAR: Incompletely imaged. Moderate degenerative changes. IMPRESSION: 1. Moderate to severe thoracic spine degenerative changes. No gross high-grade osseous spinal canal stenosis. 2. Osseous neural foraminal narrowing and additional findings as above. 3. The need for further evaluation with MRI as clinically indicated. 4. Previous thoracic spine imaging is not available for comparison. 5. By history patient has a pain stimulator but not definitelyvisualized on this thoracic spine MRI. Request clinical correlation. THIS IS AN ELECTRONICALLY VERIFIED FINAL REPORT 03/28/2025 9:47 PM - Electronically signed by Suresh Schilling D.O. AP: AP Report ID: [id number] Reading Location: [id number] Malik Zazueta MD IMG CT PROCEDURES Fi nal Result * XR Chest PA Lateral 2 Views (03/01/2025 2:37 PM CDT) Anatomical Region Laterality Modality Body, Chest N/A Computed Radiogr aphy 03/08/2025 6:03 AM CDT Narrative 03/08/2025 6:05 AM CDT EXAM DESCRIPTION: XR CHEST PA LATERAL 2 VIEWS REASON FOR STUDY: PRE OP Pre op for pain stimulator pump Stent placements Bronchitis COPD AAA without rupture TECHNIQUE: PA and lateral radiographic view(s) of the chest. COMPARISON: 11/26/2024, 08/13/2024 FINDINGS: LUNGS: There are patchy airspace opacities demonstrated within the lung bases, similar to multiple prior examinations. No new consolidation. No effusion or pneumothorax. HEART/MEDIASTINUM: Cardiac silhouette and mediastinal contours are within normal limits. LINES/TUBES: None. BONES: Degenerative changes. No acute osseous abnormality. IMPRESSION: Chronic patchy opacities in the lung bases, similar. This may represent chronic fibrosis. A component of superimposed infection is difficult to entirely exclude. Correlate clinically THIS IS AN ELECTRONICALLY VERIFIED FINAL REPORT 03/08/2025 6:05 AM - Electronically signed by Ericka Lemos M.D. TW: TW Report ID: [id number] Reading Location: [id number] Procedure Note Ericka Lemos MD - 03/08/2025 EXAM DESCRIPTION: XR CHEST PA LATERAL 2 VIEWS REASON FOR STUDY: PRE OP Pre op for pain stimulator pump Stent placements Bronchitis COPD AAA without rupture TECHNIQUE: PA and lateral radiographic view(s) of the chest. COMPARISON: 11/26/2024, 08/13/2024 FINDINGS: LUNGS: There are patchy airspace opacities demonstrated within the lung bases, similar to multiple prior examinations. No new consolidation. No effusion or pneumothorax. HEART/MEDIASTINUM: Cardiac silhouette and mediastinal contours are within normal limits. LINES/TUBES: None. BONES: Degenerative changes. No acute osseous abnormality. IMPRESSION: Chronic patchy opacities in the lung bases, similar. This may represent chronic fibrosis. A component of superimposed infection is difficult to entirely exclude. Correlate clinically THIS IS AN ELECTRONICALLY VERIFIED FINAL REPORT 03/08/2025 6:05 AM - Electronically signed by Ericka Lemos M.D. TW: TW Report ID: [id number] Reading Location: [place] [id number] Malik Zazueta MD IMG XR PROCEDURES Fi nal Result * ECG 12 lead (03/01/2025 2:25 PM CDT) 03/01/2025 2:25 PM CDT Narrative [facility] - 03/01/2025 3:20 PM CDT Vent Rate: 53 bpm RR Interval: 1119 msec UT Interval: 240 msec QRS Duration: 103 msec QT Interval: 472 msec QTC Interval: 455 msec P-R-T Warren: 23 - 21 - 51 degrees IMPRESSION: SINUS BRADYCARDIA WITH FIRST DEGREE AV BLOCK ABNORMAL ECG Electronically Signed By: Sarmad Morales MD Malik Zazueta MD ECG ORDERABLES Emily l Result [facility] * (ABNORMAL) eGFR (03/01/2025 1:54 PM CDT) eGFR 40(L) >=60 mL/min/1. 73 m2 Comment: Interpretive Data Reference Interval Normal >/= 90 mL/min/1.73m2 Mildly decreased* 60 - 89 mL/min/1.73m2 Mildly to moderately decreased 45 - 59 mL/min/1.73m2 Moderately to severely decreased 30 - 44 mL/min/1.73m2 Severely decreased 15 - 29 mL/min/1.73m2 Kidney Failure < 15 mL/min/1.73m2 *Relative to young adult level Estimated glomerular filtration rate is determined by the 2020 CKD-EPI equation recommended by the National Kidney [employer] (A Unifying Approach to GFR Estimation: Recommendations of the NKF-ASK Task Force on Reassessing the Inclusion of Race in Diagnosing Kidney Disease, JASN 2020). The CKD-EPI equation should not be used for patients with unstable renal function and has not been validated in children and those over 70. Current interpretive data was last reviewed 2021. Blood 03/01/2025 1:54 PM CDT 03/01/2025 2:21 PM CDT us Malik Zazueta MD LAB BLOOD ORDERABLES Final Result [facility] ([place]) 1 [facility] Department [place] [address] * (ABNORMAL) Differential, auto (03/01/2025 1:54 PM CDT) Neutrophil abs 9.48(H) 1.50 - 6.50 K/cumm Imm gran abs 0.42(H) 0.00 - 0.10 K/cumm [facility] ([place]) Lymphocyte abs 1.51 0.80 - 3.30 K/cumm [facility] ([place]) Monocyte abs 1.14(H) 0.20 - 0.80 K/cumm [facility] ([place]) Eosinophil abs 0.08 0.00 - 0.50 K/cumm [facility] ([place]) Basophil abs 0.04 0.00 - 0.10 K/cumm [facility] ([place]) Neutrophil pct 74.9 % [facility] ([place]) Comment: Interpretive Data Percent cell count reference ranges are not reported, since discordance with absolute values may lead to misinterpretation of CBC data. Current Interpretive Data was last revised on 2018. Imm gran pct 3.3 % [facility] ([place]) Comment: Interpretive Data Percent cell count reference ranges are not reported, since discordance with absolute values may lead to misinterpretation of CBC data. Current Interpretive Data was last revised on 2018. Lymphocyte pct 11.9 % [facility] ([place]) Comment: Interpretive Data Percent cell count reference ranges are not reported, since discordance with absolute values may lead to misinterpretation of CBC data. Current Interpretive Data was last revised on 2018. Monocyte pct 9.0 % [facility] ([place]) Comment: Interpretive Data Percent cell count reference ranges are not reported, since discordance with absolute values may lead to misinterpretation of CBC data. Current Interpretive Data was last revised on 2018. Eosinophil pct 0.6 % [facility] ([place]) Comment: Interpretive Data Percent cell count reference ranges are not reported, since discordance with absolute values may lead to misinterpretation of CBC data. Current Interpretive Data was last revised on 2018. Basophil pct 0.3 % [facility] ([place]) Comment: Interpretive Data Percent cell count reference ranges are not reported, since discordance with absolute values may lead to misinterpretation of CBC data. Current Interpretive Data was last revised on 2018. Blood 03/01/2025 1:54 PM CDT 03/01/2025 2:21 PM CDT us Malik Zazueta MD LAB BLOOD ORDERABLES Final Result [facility] ([place]) 1 [facility] Department [place] [address] * Urinalysis reflex to microscopic (03/01/2025 1:54 PM CDT) Color, ur Yellow Yellow Clarity, ur Clear Clear [facility] ([place]) Specific gravity, ur 1.013 1.003 - 1.030 [facility] ([place]) pH, urine 5.5 [facility] ([place]) Comment: Interpretive Data U rine pH is affected by diet, medications, systemic acid-base disturbances, and renal tubular function. pH may affect urinary stone formation. For example, urine pH below 6.0 may help reduce the tendency for calcium phosphate stones and pH greater than 6.0 may reduce the tendency for uric acid stone formation. Source: [facility] [employer] Current Interpretive Data was last revised on 2017 Protein, ur ql Negative Negative [facility] ([place]) Glucose, ur ql Negative Negative [facility] ([place]) Ketones, ur Negative Negative [facility] ([place]) Bilirubin, ur Negative Negative [facility] ([place]) Blood, ur Negative Negative [facility] ([place]) Urobilinogen, ur <2.0 <2.0 mg/dL [facility] ([place]) Nitrite, ur Negative Negative [facility] ([place]) Leukocyte esterase, ur Negative Negative [facility] ([place]) UA reflex comment Reflex conditions for microscopic UA not met. [facility] ([place]) Urine 03/01/2025 1:54 PM CDT 03/01/2025 2:22 PM CDT us Malik Zazueta MD LAB URINE ORDERABLES Final Result [facility] ([place]) 1 [facility] Department [place] [address] * (ABNORMAL) CBC with auto differential (03/01/2025 1:54 PM CDT) WBC 12.67(H) 3.80 - 9.90 K/cumm Hgb 11.4(L) 13.0 - 17.5 g/dL [facility] ([place]) Hct 34.6(L) 38.9 - 50.3 % [facility] ([place]) Plt 260 150 - 400 K/cumm [facility] ([place]) MPV 9.4 9.1 - 12.3 fL [facility] ([place]) RBC 3.46(L) 4.30 - 5.80 M/cumm [facility] ([place]) MCV 100.0(H) 81.3 - 96.4 fL [facility] ([place]) MCH 32.9 27.1 - 33.3 pg [facility] ([place]) MCHC 32.9 32.3 - 35.7 g/dL [facility] ([place]) RDW CV 15.9(H) 11.1 - 14.9 % [facility] ([place]) RDW SD 58.3(H) 35.7 - 48.1 fL [facility] ([place]) NRBC abs 0.00 0.00 - 0.01 K/cumm [facility] ABIMA[facility] ([place]) Blood 03/01/2025 1:54 PM CDT 03/01/2025 2:21 PM CDT us Malik Zazueta MD LAB BLOOD ORDERABLES Final Result [facility] ([place]) 1 [facility] [place] [address] * aPTT (03/01/2025 1:54 PM CDT) aPTT 38 28 - 38 sec [facility] ([place]) Comment: Interpretive Data Heparin therapeutic range: 66.0 - 100.0 seconds. Range based on correlation with therapeutic heparin activity range of 0.3 - 0.7 Units/mL. Current interpretive data was last revised on 2023. Blood 03/01/2025 1:54 PM CDT 03/01/2025 2:21 PM CDT us Malik Zazueta MD LAB BLOOD ORDERABLES Final Result Performing Organization Address City/[facility]/ZIP Co de Phone Number [facility] VARGHESE ([place]) 1 [facility] [place] [address] * Erythrocyte sedimentation rate (03/01/2025 1:54 PM CDT) Erythrocyte sedimentation rate 14 1 - 20 mm/hr Blood 03/01/2025 1:54 PM CDT 03/01/2025 2:21 PM CDT us Malik Zazueta MD LAB BLOOD ORDERABLES Final Result [facility] ([place]) 1 [facility] [place] [address] * Protime-INR (03/01/2025 1:54 PM CDT) PT 13.0 9.7 - 13.0 sec [facility] ([place]) INR 1.20 0.90 - 1.20 [facility] ([place]) Comment: Interpretive data Oral anticoagulant therapeutic ranges: Venous thromboembolism prophylaxis or treatment: 2.0-3.0 CARDIOLOGY Standard range: 2.0-3.0 High-intensity range: 2.5-3.5 Refer to indication-specific guidelines for appropriate target ranges for prosthetic heart valve replacement. Current interpretive data was last revised on 2019. Blood 03/01/2025 1:54 PM CDT 03/01/2025 2:21 PM CDT Malik Zazueta MD LAB BLOOD ORDERABLES Final Result Performing Organization Address City/[facility]/ZIP Co de Phone Number [facility] ([place]) 1 [facility] [place] [address] * CRP (acute phase) (03/01/2025 1:54 PM CDT) [facility] CRP <3.0 <=10.0 mg/L Blood 03/01/2025 1:54 PM CDT 03/01/2025 2:21 PM CDT Malik Zazueta MD LAB BLOOD ORDERABLES Final Result Performing Organization Address City/[facility] Co de Phone Number [facility] ([facility] 1 [facility] [place] [address] * (ABNORMAL) Basic metabolic panel (03/01/2025 1:54 PM CDT) Sodium 140 135 - 145 mmol/L Potassium, pl 4.0 3.3 - 4.9 mmol/L [facility] ([place]) Chloride 100 97 - 110 mmol/L [facility] ([place]) CO2 28 22 - 32 mmol/L [facility] ([place]) Anion gap 12 2 - 15 mmol/L [facility] ([place]) BUN 30(H) 6 - 25 mg/dL [facility] ([place]) Creatinine 1.66(H) 0.80 - 1.30 mg/dL [facility] ([place]) Glucose 118 70 - 199 mg/dL [facility] ([place]) Comment: Interpretive Data Fasting glucose >/= 126 mg/dl is diagnostic for diabetes. Fasting is defined as no caloric intake for at least 8 hours. Fasting glucose between 100 mg/dl to 125 mg/dl is diagnostic of prediabetes. In a patient with classic symptoms of hyperglycemia or hyperglycemic crisis, a random glucose >/= 200 mg/dl is diagnostic for diabetes. In the absence of unequivocal hyperglycemia, results should be confirmed by repeat testing. The classification and Diagnosis of Diabetes Diabetes Care 202; 46: S19-S40. Current interpretive data was last revised 2022. Calcium 8.8 8.5 - 10.3 mg/dL [facility] ([place]) Blood 03/01/2025 1:54 PM CDT 03/01/2025 2:21 PM CDT Malik Zazueta MD LAB BLOOD ORDERABLES Final Result [facility] VARGH[facility] ([place]) 1 [facility] Department [place] [address] * (ABNORMAL) eGFR (01/31/2025 12:29 PM POULTRY TRIMMER) eGFR 46(L) >=60 mL/min/1. 73 m2 Comment: Interpretive Data Reference Interval Normal >/= 90 mL/min/1.73m2 Mildly decreased* 60 - 89 mL/min/1.73m2 Mildly to moderately decreased 45 - 59 mL/min/1.73m2 Moderately to severely decreased 30 - 44 mL/min/1.73m2 Severely decreased 15 - 29 mL/min/1.73m2 Kidney Failure < 15 mL/min/1.73m2 *Relative to young adult level Estimated glomerular filtration rate is determined by the 2020 CKD-EPI equation recommended by the National Kidney Foundation (A Unifying Approach to GFR Estimation: Recommendations of the NKF-ASK Task Force on Reassessing the Inclusion of Race in Diagnosing Kidney Disease, JASN 2020). The CKD-EPI equation should not be used for patients with unstable renal function and has not been validated in children and those over 70. Current interpretive data was last reviewed 2021. Blood 01/31/2025 12:2 9 PM POULTRY TRIMMER 01/31/2025 1:50 PM POULTRY TRIMMER us Hansel Moon MD LAB BLOOD ORDERABLES Final Result [facility] ([place]) 1 [facility] [place] [address] * Differential, auto (01/31/2025 12:29 PM POULTRY TRIMMER) Neutrophil abs 5.9 1.5 - 6.5 K/cumm Imm gran abs 0.1 0.0 - 0.1 K/cumm [facility] ([place]) Lymphocyte abs 1.5 0.8 - 3.3 K/cumm [facility] ([place]) Monocyte abs 0.6 0.2 - 0.8 K/cumm [facility] ([place]) Eosinophil abs 0.2 0.0 - 0.5 K/cumm [facility] ([place]) Basophil abs 0.0 0.0 - 0.1 K/cumm [facility] ([place]) Neutrophil pct 70.5 % [facility] ([place]) Comment: Interpretive Data Percent cell count reference ranges are not reported, since discordance with absolute values may lead to misinterpretation of CBC data. Current Interpretive Data was last revised on 2018. Imm gran pct 1.6 % [facility] ([place]) Comment: Interpretive Data Percent cell count reference ranges are not reported, since discordance with absolute values may lead to misinterpretation of CBC data. Current Interpretive Data was last revised on 2018. Lymphocyte pct 17.9 % [facility] ([place]) Comment: Interpretive Data Percent cell count reference ranges are not reported, since discordance with absolute values may lead to misinterpretation of CBC data. Current Interpretive Data was last revised on 2018. Monocyte pct 7.6 % [facility] ([place]) Comment: Interpretive Data Percent cell count reference ranges are not reported, since discordance with absolute values may lead to misinterpretation of CBC data. Current Interpretive Data was last revised on 2018. Eosinophil pct 2.2 % [facility] ([place]) Comment: Interpretive Data Percent cell count reference ranges are not reported, since discordance with absolute values may lead to misinterpretation of CBC data. Current Interpretive Data was last revised on 2018. Basophil pct 0.2 % [facility] ([place]) Comment: Interpretive Data Percent cell count reference ranges are not reported, since discordance with absolute values may lead to misinterpretation of CBC data. Current Interpretive Data was last revised on 2018. Blood 01/31/2025 12:2 9 PM POULTRY TRIMMER 01/31/2025 1:50 PM POULTRY TRIMMER us Hansel Moon MD LAB BLOOD ORDERABLES Final Result REBAANATOLY ABIMAEL (LAST) 1 [facility] [place] [address] * Thyroid Function [place] (01/31/2025 12:29 PM POULTRY TRIMMER) Pathologist [facility] TSH 3.09 0.30 - 4.20 mcIUnit/mL Blood 01/31/2025 12:2 9 PM POULTRY TRIMMER 01/31/2025 1:50 PM POULTRY TRIMMER us Hansel Moon MD LAB BLOOD ORDERABLES Final Result LORNA VARGHESE (LAST) 1 [facility] [place] [address] * (ABNORMAL) CBC with auto differential (01/31/2025 12:29 PM POULTRY TRIMMER) WBC 8.3 3.8 - 9.9 K/cumm Hgb 10.5(L) 13.0 - 17.5 g/dL [facility] (LAST) Hct 32.4(L) 38.9 - 50.3 % [facility] (LAST) Plt 255 150 - 400 K/cumm [facility] (LAST) MPV 9.3 9.1 - 12.3 fL [facility] (LAST) RBC 3.18(L) 4.30 - 5.80 M/cumm [facility] (LAST) MCV 101.9(H) 81.3 - 96.4 fL [facility] (LAST) MCH 33.0 27.1 - 33.3 pg [facility] (LAST) MCHC 32.4 32.3 - 35.7 g/dL [facility] (LAST) RDW CV 15.9(H) 11.1 - 14.9 % [facility] (LAST) RDW SD 60.3(H) 35.7 - 48.1 fL [facility] NRBC abs 0.00 0.00 - 0.01 K/cumm [facility] Blood 01/31/2025 12:2 9 PM POULTRY TRIMMER 01/31/2025 1:50 PM POULTRY TRIMMER Hansel Moon MD LAB BLOOD ORDERABLES Final Result Performing Organization Address [facility] Co de Phone Number LORNA VARGHESE (LAST) 1 [facility] [place] [address] * Magnesium (01/31/2025 12:29 PM POULTRY TRIMMER) Magnesium 1.7 1.4 - 2.5 mg/dL Blood 01/31/2025 12:2 9 PM POULTRY TRIMMER 01/31/2025 1:50 PM POULTRY TRIMMER Hansel Moon MD LAB BLOOD ORDERABLES Final Result Performing Organization Address City/[facility] Co de Phone Number [facility] 1 [facility] [place] [address] * Lipid panel (01/31/2025 12:29 PM POULTRY TRIMMER) Cholesterol 144 30 - 199 mg/dL Comment: Interpretive Data Ages < or = 19 years Acceptable: <170 mg/dL Borderline high: 170-199 mg/dL High: >or= 200 mg/dL Ages > or = 20 years Desirable: <200 mg/dL Borderline high: 200-239 mg/dL High: >or= 240 mg/dL Literature References: 1. Expert Panel on Integrated Guidelines for Cardiovascular Health and Risk Reduction in Children and Adolescents. Pediatrics 2011;128:S213 2. NCEP Expert Panel. Circulation 2004;110:227 Current Interpretive Data was last revised on 2018. Triglycerides 104 <=149 mg/dL LORNA VARGHESE (LAST) Comment: Interpretive Data Ages < or = 9 years Acceptable: <75 mg/dL Borderline high: 75-99 mg/dL High: >or= 100 mg/dL Ages 10 to 20 years Acceptable: <90 mg/dL Borderline high: 90-129 mg/dL High: >or= 130 mg/dL Ages > or = 20 years Desirable: <150 mg/dL Borderline high: 150-199 mg/dL High: 200-499 mg/dL Very high: >or= 499 mg/dL Literature References: 1. Expert Panel on Integrated Guidelines for Cardiovascular Health and Risk Reduction in Children and Adolescents. Pediatrics 2011;128:S213 2. NCEP Expert Panel. Circulation 2004;110:227 Current Interpretive Data was last revised on 2018. HDL 46 >=40 mg/dL LORNA Chaparro (LAST) Comment: Interpretive Data Ages < or = 19 years Acceptable: >45 mg/dL Borderline low: 40-45 mg/dL Low: <40 mg/dL Ages > or = 20 years Desirable: >or= 60 mg/dL Low: <40 mg/dL Literature References: 1. Expert Panel on Integrated Guidelines for Cardiovascular Health and Risk Reduction in Children and Adolescents. Pediatrics 2011;128:S213 2. NCEP Expert Panel. Circulation 2004;110:227 Current Interpretive Data was last revised on 2018. LDL, calculated 79 <=129 mg/dL LORNA VARGHESE (LAST) Comment: Interpretive Data Ages < or = 19 years Acceptable: <110 mg/dL Borderline high: 110-129 mg/dL High: >or= 130 mg/dL Ages > or = 20 years Optimal: <100 mg/dL Near optimal: 100-129 mg/dL Borderline high: 130-159 mg/dL High: >160 mg/dL Calculated using the Mathews LDL-C estimating equation. This equation was implemented on 2024. Prior to this date LDL-C was estimated using the Friedewald equation. Literature References: 1. Expert Panel on Integrated Guidelines for Cardiovascular Health and Risk Reduction in Children and Adolescents. Pediatrics 2011;128:S213 2. NCEP Expert Panel. Circulation 2004;110:227 3. Reid M et al. SACHIN Cardiol. 2020 March 31;5(5):540-548. doi: 10.1001/jamacardio.2020.0013 Current Interpretive Data was last revised on 2024. Non-HDL Cholesterol 98 mg/dL [facility] (LAST) Comment: Interpretive Data Ages < or = 19 years Acceptable: <120 mg/dL Borderline high: 120-144 mg/dL High: >145 mg/dL Ages > or = 20 years When triglycerides are >200 mg/dL, Non-HDL cholesterol is a secondary target of therapy with treatment goals that are 30 mg/dL greater than the LDL cholesterol target. Literature References: 1. Expert Panel on Integrated Guidelines for Cardiovascular Health and Risk Reduction in Children and Adolescents. Pediatrics 2011;128:S213 2. NCEP Expert Panel. Circulation 2004;110:227 Current Interpretive Data was last revised on 2018. Chol/HDL ratio 3 [facility] (LAST) Blood 01/31/2025 12:2 9 PM POULTRY TRIMMER 01/31/2025 1:50 PM POULTRY TRIMMER us Hansel Moon MD LAB BLOOD ORDERABLES Final Result [facility] (LAST) 1 [facility] [place] [address] * (ABNORMAL) Comprehensive metabolic panel (01/31/2025 12:29 PM POULTRY TRIMMER) Sodium 140 135 - 145 mmol/L Potassium, pl 4.5 3.3 - 4.9 mmol/L [facility] (LAST) Chloride 103 97 - 110 mmol/L [facility] (LAST) CO2 28 22 - 32 mmol/L [facility] (LAST) Anion gap 10 2 - 15 mmol/L [facility] (LAST) BUN 15 6 - 25 mg/dL [facility] (LAST) Creatinine 1.48(H) 0.80 - 1.30 mg/dL [facility] (LAST) Glucose 150 70 - 199 mg/dL [facility] (LAST) Comment: Interpretive Data Fasting glucose >/= 126 mg/dl is diagnostic for diabetes. Fasting is defined as no caloric intake for at least 8 hours. Fasting glucose between 100 mg/dl to 125 mg/dl is diagnostic of prediabetes. In a patient with classic symptoms of hyperglycemia or hyperglycemic crisis, a random glucose >/= 200 mg/dl is diagnostic for diabetes. In the absence of unequivocal hyperglycemia, results should be confirmed by repeat testing. The classification and Diagnosis of Diabetes Diabetes Care 2021; 46: S19-S40. Current interpretive data was last revised 2022. Calcium 8.3(L) 8.5 - 10.3 mg/dL [facility] (LAST) Bilirubin, total 0.3 0.1 - 1.2 mg/dL [facility] (LAST) Protein, pl 5.7(L) 6.5 - 8.5 g/dL [facility] (LAST) Albumin 3.5 3.5 - 5.0 g/dL [facility] (LAST) Alk phos 134(H) 40 - 130 Units/L [facility] (LAST) ALT 11 7 - 55 Units/L [facility] (LAST) AST 13 10 - 50 Units/L [facility] (LAST) Comment:Slightly Hemolyzed S pecimen Blood 01/31/2025 12:2 9 PM POULTRY TRIMMER 01/31/2025 1:50 PM POULTRY TRIMMER us Hansel Moon MD LAB BLOOD ORDERABLES Final Result [facility] (LAST) 1 [facility] Department [place] [address] * NM MPI SPECT (Rest and/or Stress) Multiple Studies (01/28/2025 3:55 PM POULTRY TRIMMER) Anatomical Region Laterality Modality Body N/A Nuclear Medicine Impressions 01/31/2025 7:26 PM POULTRY TRIMMER 1. No scintigraphic evidence of myocardial ischemia. 2. Normal left ventricular size and systolic function. I personally supervised and interpreted the stress test. Copy to Sowmya Esquivel MD John Lehman, MD 01/31/2025 Narrative 01/31/2025 7:26 PM POULTRY TRIMMER Patient Id: Chris Julio is a 89 y.o. male. MR#: [id number] Study date: 01/28/2025 EXAM DESCRIPTION: NM MPI SPECT (REST AND/OR STRESS) MULTIPLE STUDIES RADIOPHARMACEUTICAL: Rest: 11 mCi Tc-99m tetrofosmin via left antecubital fossa IV site Pharmacologic Stress: 33 mCi Tc-99m tetrofosmin via left antecubital fossa IV site REASON FOR STUDY: Exertional dyspnea which can be an anginal equivalent, preoperative cardiovascular examination, obstructive sleep apnea, obesity, hyperlipidemia, hypertension, heart failure with preserved ejection fraction, peripheral arterial disease, abdominal aortic aneurysm, paroxysmal atrial fibrillation, coronary artery disease status post PCI TECHNIQUE: After informed consent, standard myocardial perfusion SPECT images were obtained after resting tracer injection. Subsequently, an intravenous infusion of regadenoson was performed. Standard myocardial perfusion images were obtained after tracer injection at the peak effect of the drug. STRESS PORTION AND EKG: See separately dictated report for stress portion and EKG. FINDINGS: Study quality: No motion artifact. Image quality is adequate at rest and at stress. No significant fixed or reversible myocardial perfusion defects are seen. Gated post-stress images demonstrate normal left ventricular wall thickening, without global or focal wall motion abnormality. The left ventricular volume is normal . The left ventricular ejection fraction is 67 % (normal >45%). There is no evidence of transient ischemic dilation with calculated TID ratio of 0.82 . Hansel Moon MD [facility] [place] PROCEDURES Final Re sult * Stress Test for Myocardial Perfusion (01/28/2025 3:55 PM POULTRY TRIMMER) Anatomical Region Laterality Modality Nuclear Medicine Impressions 01/28/2025 3:01 PM POULTRY TRIMMER 1. EKG portion of the stress test is negative for ischemia. 2. Nuclear images pending. I personally supervised and interpreted the stress test. Copy to Sowmya Esquivel MD John Lehman, MD 01/28/2025 Narrative 01/28/2025 3:01 PM POULTRY TRIMMER Patient Id: Chris Julio is a 89 y.o. male. MR#: [id number] Study date: 01/28/2025 EXAM DESCRIPTION: STRESS LEXISCAN MYOVIEW TECHNIQUE: Baseline EKG: Sinus bradycardia, 52 beats per minute, first-degree AV block. Stress test was performed according to Lexiscan protocol. Initial blood pressure 143/52, with resting heart rate 52 beats per minute. Blood pressure after Lexiscan infusion was 115/44, and post infusion heart rate was 55. There were no EKG changes suggesting ischemia. There were no arrhythmias. SYMPTOMS: Patient denied chest pain or shortness of breath. Procedure Note Hansel Moon MD - 01/28/2025 Patient Id: Chris Julio is a 89 y.o. male. MR#: [id number] Study date: 01/28/2025 EXAM DESCRIPTION: STRESS LEXISCAN MYOVIEW TECHNIQUE: Baseline EKG: Sinus bradycardia, 52 beats per minute, first-degree AVblock. Stress test was performed according to Lexiscan protocol. Initial blood pressure 143/52, with resting heart rate 52 beats perminute. Blood pressure after Lexiscan infusion was 115/44, and post infusion heartrate was 55. There were no EKG changes suggesting ischemia. There were noarrhythmias. SYMPTOMS: Patient denied chest pain or shortness of breath. IMPRESSION: 1. EKG portion of the stress test is negative for ischemia. 2. Nuclear images pending. I personally supervised and interpreted the stress test. Copy to Sowmya Esquivel MD John Lehman, MD 01/28/2025 Hansel Moon MD CV STRESS PROCEDURES Final Result from Last 3 Months Insurance [facility] ADMINISTRATION CHOICE [facility] Member Subscriber Plan / Payer (Ef fective 2021-Present) Name:Chris Julio Brit Relation to Subscriber:Self Name:Chris Julio Payer ID:[id number] (NA) Type:MEDICARE RISK OTHER Address: [address] [place] [address] Advance Directives For more information, please contact: [phone] * Full Code (Latest Code Status on File) Date Activated Date Inactivated Comments 03/31/2025 6:49 PM 04/02/2025 7:11 PM * Full Code Date Activated Date Inactivated Comments 05/21/2024 12:45 PM 05/26/2024 8:11 PM * Full Code Date Activated Date Inactivated Comments 02/18/2024 2:17 AM 02/19/2024 2:34 PM * Full Code Date Activated Date Inactivated Comments 01/15/2024 12:52 AM 01/18/2024 3:30 PM * Full Code Date Activated Date Inactivated Comments 01/14/2024 9:44 PM 01/15/2024 12:52 AM Care Teams Sustainability Purchasing Agent Relationship Specialty Start Date End Date Sowmya Esquivel MD [address] [facility] [address] [place] [address] [place] [id number] PCP - General Family Medicine 12/27/21 Hansel Moon MD [address] [facility] [address] [place] [address] [address] Consulting Physician Cardiology 03/10/25 Malik Zazueta MD [address] [place] [address] Anesthesiologist Pain Management 03/10/25 [place] [address] [place] [address] [place] [id number] Consulting Physician Urology 03/10/25
--- OUTSIDE RECORDS SUMMARY | 2025-04-22 14:33 | XMS_ITS ---
Author Organization [facility] Address [address] [place] [address] [place] [address] Care Team Providers Care Bpm Analyst Name Role Phone LUIS HARDY MD, [facility] Primary Care Provide r Unavailable Malik Zazueta Unavailable [phone] [place], [place] Unavailable Unavailable ALLERGIES Allergen (clinical drug ingredient) Drug/Non Drug Allergy documented on EMR Reaction Allergy Type Onset Date Status cetirizine Cetirizine headache Drug Allergy Activ e codeine Codeine rash Drug Allergy Active REASON FOR VISIT Right > Left Low Back Pain MEDICATIONS Medication SIG (Take, Route, Frequency, Duration) Notes Start Date End Date Status Plavix 75 MG 1 tablet Orally Once a day for 30 day(s) Active Advair Diskus 100-50 MCG/ACT 1 puff Inhalation Twice a day Active Metoprolol Succinate 25 MG 1 capsule Ora lly Once a day for 30 day(s) Active Aspirin 81 MG 1 capsule Orally Once a day for 30 day(s) Active Atorvastatin Calcium 80 MG 1 tablet Oral ly Once a day for 30 day(s) Active Doxycycline Hyclate 100 MG 1 tablet Oral ly twice a day for 5 days Active Potassium Chloride Shaina ER 20 MEQ TAKE 2 TABLETS BY MOUTH ONCE DAILY Oral for 10 Active Furosemide 40 MG TAKE 1 TABLET BY MOUTH TWICE DAILY Oral for 90 I10,Unavailab le Active Chlorhexidine Gluconate 4 % as directed Externally prior to surgery for 2 days Active Oseltamivir Phosphate 75 MG TAKE 1 CAPSU LE BY MOUTH TWICE DAILY FOR 5 DAYS Oral for 5 Active Tamsulosin HCl 0.4 MG 1 capsule Orally Once a day for 30 day(s) Active Omeprazole 20 MG 1 capsule Orally Once a day for 30 day(s) Active hydroCHLOROthiazide 25 MG 1 tablet in morning Orally Once a day for 30 day(s) Active Breztri Aerosphere 160-9-4.8 MCG/ACT INHALE 2 PUFFS TWICE DAILY Inhalation for 30 Active Famotidine 40 MG Oral for 90 A ctive Albuterol Sulfate HFA 108 (90 Base) MCG/ACT 2 puffs as needed Inhalation every 6 hrs Active VITAL SIGNS Blood pressure systolic 150 mm Hg 02/26/20 25 Blood pressure diastolic 69 mm Hg 025 Heart Rate 57 /min 02/25/2025 Respiratory Rate 18 /min 02/25/2025 Height 5 ft 10 in in 02/25/2025 Weight 223 lbs 02/25/2025 BMI 31.99 kg/m2 02/25/2025 Encounters Encounter Location Date Provider Diagnosis [facility] [address] [place] [id number] 02/25/2025 Malik Stewartrachel Sacroiliitis, not elsewhere classified M46.1 ASSESSMENTS Encounter Date Diagnosis Assessment Notes Treatment Notes Treatment Clinical Notes 02/25/2025 Sacroiliitis, not elsewhere classified (ICD-10 - M46.1) PLAN OF TREATMENT Next Appt Details Follow Up: HAS 03/09/25 F/U SC HEDULED, Reason: Provider Name:Malik mabry, 04/28/2025 02:30:00 PM, [address] [place] [address], [phone], Procedure Notes * Category Sub-Category Detail Notes Sacroiliac Joint Injection w ith Arthrogram under Fluoroscopy Location Bilateral Anesthesia Local without IV sed ation Operative Technique After the risks, calvin efits, alternative treatments and potential complications related to the procedure were discussed and informed consent was obtained, the patient was placed in the prone position on the fluoroscopy table. Standard ASA monitors were applied. The lower back and buttocks were prepped and draped in the usual sterile fashion with chlorhexidine 2%/IPA 70%. The left, followed by the right, sacroiliac joint was identified under live x-ray. An AP view was obtained superimposing the inferior aspect of the anterior and posterior sacroiliac joint. A 23 gauge 3.5 inch spinal needle was inserted under fluoroscopic guidance towards the inferior aspect of the sacroiliac joint until periosteum was contacted. The subcutaneous structures were anesthetized with 1 mL of 1% Preservative-Free lidocaine during needle placement. The needle tip was advanced into the inferior most aspect of the sacroiliac joint. A lateral view was taken to ensure correct placement within the sacroiliac joint. An AP view was taken and after negative aspiration for blood, air and CSF, 2 mL of Omnipaque 240 contrast dye was injected into each joint under live fluoroscopy for an arthrogram demonstrating normal cephalad spread within the sacroiliac joint (except in cases of contrast allergy). No intravascular or perineural spread noted. There were no abnormalities in articular contour noted on the arthrogram. A solution of 10 mg of Preservative-Free Dexamethasone (10 mg/mL), plus 2 mL of 0.25% PF bupivacaine was mixed and after negative aspiration 1.5 mL of this solution was slowly injected into each (left followed by right) joint space. The needle was removed, the skin was cleaned and band-aids were placed over the puncture site. The patient tolerated the procedure well, was able to ambulate without difficulty and was monitored for 20 minutes. Patient reports a 90% reduction in typical pain immediately postprocedure. The patient remained hemodynamically and neurologically stable. No apparent complications were observed. Postoperative instructions were reviewed with the patient. The patient was then discharged home in good condition with a special events driver. X-ray time: 10 seconds Progress Notes * Examination Category Sub-Category Detail Notes Examination/ Pre-Anesthesia Assessment General: The patient is alert and verena ented X 3 in moderate distress secondary to pain HEENT: Normocephalic, atrau matic. PERRL. The oropharynx is clear. There is tenderness to palpation over the bilateral occiput Neck: There is limited ran ge of motion of the cervical spine to 45 degrees with extension and lateral rotation bilaterally. There is tenderness to palpation over the bilateral C2-3 through C6-7 facet joints. Extension and lateral rotation of the cervical spine reproduces the patient's typical axial neck pain. There is tenderness palpation over the bilateral cervical paraspinal muscles and palpable myofascial trigger points within the body of the trapezius muscles bilaterally. The axial loading test is positive. Spurling sign is positive bilaterally Heart: Regular rate and rhy thm Chest: Clear to auscultatio n bilaterally Abdomen: Soft and benign Musculoskeletal and Extremities: There i s tenderness to palpation over the bilateral L3-4 through L5-S1 facet joints. Extension and lateral rotation of the lumbar spine reproduces the patient's typical axial low back pain. Anders's and gaenslen's are positive bilaterally. There is tenderness palpation over the bilateral sacroiliac joints and greater trochanters. There is tenderness to palpation over the bilateral lumbar paraspinal muscles and palpable myofascial trigger points throughout. There is weakness and atrophy of the bilateral lumbar paraspinal muscles. There is diffuse tenderness to palpation about the bilateral shoulders. There is positive impingement at 90 degrees of abduction bilaterally. There is tenderness to palpation about the left ankle and crepitus with range of motion testing of the tibiotalar joint. Left tibiotalal joint flexion- extension ROM is 15 degrees Neurological: There is positive st raight leg raising bilaterally. Spurling sign is positive bilaterally. There is 4 out of 5 strength at the bilateral anterior tibialis and EHL. There is 4 out of 5 strength with biceps flexion bilaterally. Otherwise, there are no strength deficits in the remainder of the upper and lower extremities bilaterally. There is a positive Tinel's over the bilateral greater occipital nerves Skin: Clean, dry and intac t Psychiatric: Mood and affect are normal History and Physical Notes * HPI (History of Present Illness) Category Sub-Category Detail Notes Pain Management Radiographic Imaging Lumbar spin e MRI without contrast 09/08/2019: L4 on L5 anterolisthesis. L1-2: Broad-based disc bulge and facet arthropathy. L2-3: Disc osteophyte complex and bilateral facet arthropathy with moderate central canal stenosis, moderate left and severe right neuroforaminal stenosis. L3-4: A broad-based disc bulge with bilateral facet arthropathy with moderate to severe central stenosis, severe bilateral neuroforaminal stenosis. L4-L5: Broad-based disc bulge and facet arthropathy with moderate central stenosis, mild to moderate right and moderate left neuroforaminal stenosis. L5-S1: A broad-based disc bulge and bilateral facet arthropathy with mild central canal stenosis, severe right and moderate to severe left neuroforaminal stenosis Assessment and Follow-up: Follow-up Plan documen paula:: Yes MIPS Quality 2020: MIPS Documented:: Compliant
--- OUTSIDE RECORDS SUMMARY | 2025-04-22 14:33 | XMS_ITS | Patient Health Record ---
Author Organization [facility] Address [address] [place] [address] KAROLYN Chamorro [id number] Care Team Providers Care Plate Gauger Name Role Phone LUIS HARDY MD, MARIS Primary Care Provide r Unavailable Malik Zazueta Unavailable [phone] [place], [place] Unavailable Unavailable ALLERGIES Allergen (clinical drug ingredient) Drug/Non Drug Allergy documented on EMR Reaction Allergy Type Onset Date Status cetirizine Cetirizine headache Drug Allergy Activ e codeine Codeine rash Drug Allergy Active REASON FOR REFERRAL No Information MEDICATIONS Medication SIG (Take, Route, Frequency, Duration) Notes Start Date End Date Status Metoprolol Succinate 25 MG 1 capsule Ora lly Once a day for 30 day(s) Active Advair Diskus 100-50 MCG/ACT 1 puff Inha lation Twice a day Active Atorvastatin Calcium 80 MG 1 tablet Oral ly Once a day for 30 day(s) Active Aspirin 81 MG 1 capsule Orally Onc e a day for 30 day(s) Active Tamsulosin HCl 0.4 MG 1 capsule Orally O nce a day for 30 day(s) Active Famotidine 40 MG Oral for 90 A ctive Breztri Aerosphere 160-9-4.8 MCG/ACT INHALE 2 PUFFS TWICE DAILY Inhalation for 30 Active Furosemide 40 MG TAKE 1 TABLET BY MOUTH TWICE DAILY Oral for 90 Active Plavix 75 MG 1 tablet Orally Once a day for 30 day(s) Active Doxycycline Hyclate 100 MG 1 tablet Oral ly twice a day for 5 days Active Albuterol Sulfate HFA 108 (9 0 Base) MCG/ACT 2 puffs as needed Inhalation every 6 hrs Active hydroCHLOROthiazide 25 MG 1 tablet in th e morning Orally Once a day for 30 day(s) Active Omeprazole 20 MG 1 capsule Orally Onc e a day for 30 day(s) Active Potassium Chloride Shaina ER 2 0 MEQ TAKE 2 TABLETS BY MOUTH ONCE DAILY Oral for 10 Active Oseltamivir Phosphate 75 MG TAKE 1 CAPSU LE BY MOUTH TWICE DAILY FOR 5 DAYS Oral for 5 Active Chlorhexidine Gluconate 4 % as directed Externally prior to surgery for 2 days Active SOCIAL HISTORY Tobacco Use: Social History Observation Description Date Details (start date - stop date) Former Smoker NA - NA Sex Assigned At : Social History Observation Description Sex Assigned At Unknown Tobacco Use/Smoking Question Answer Notes Are you a former smoker Alcohol Screen (Audit-C) Question Answer Notes Did you have a drink containing alcohol in the p ast year? 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) Active confirmed Localized, primary osteoarthritis of the shoulder region (308033794) Problem Primary osteoarthritis, left ankle and foot (M19.072) Active confirmed Localized, primary osteoarthritis of the ankle and/or foot (391817684) Problem Pain in unspecified shoulder (M25.519) Active confirmed Shoulder joint pain (560497583) Problem Pain in left ankle and joints of left foot (M25.572) Active confirmed Arthralgia of the ankle and/or foot (016440919) Problem Sacroiliitis, not elsewhere classified (M46.1) Active confirmed Solitary sacroiliitis (543169385) Problem Spondylosis without myelopathy or radiculopathy, cervical region (M47.812) Active confirmed Cervical spondylosis without myelopathy (028529321) Problem Spondylosis without myelopathy or radiculopathy, cervicothoracic region (M47.813) Active confirmed Cervical spondylosis without myelopathy (944793588) Problem Spondylosis without myelopathy or radiculopathy, lumbar region (M47.816) Active confirmed Lumbosacral spondylosis without myelopathy (62304349) Problem Spondylosis without myelopathy or radiculopathy, lumbosacral region (M47.817) Active confirmed Lumbosacral spondylosis without myelopathy (disorder) (72136319) Problem Spinal stenosis, cervical region (M48.02) Active confirmed Spinal stenosis in cervical region (25447890) Problem Other intervertebral disc degeneration, 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 confirmed Degeneration of lumbar intervertebral disc (31540756) Problem Radiculopathy, cervical region (M54.12) Active confirmed Cervical radiculopathy (09089741) Problem Radiculopathy, cervicothoracic region (M54.13) Active confirmed Cervical radiculopathy (25874776) Problem Radiculopathy, lumbar region (M54.16) Active confirmed Lumbar radiculopathy (962472092) Problem Radiculopathy, lumbosacral region (M54.17) Active confirmed Lumbosacral radiculopathy (9101099) Problem Occipital neuralgia (M54.81) Active confirmed Occipital neuralgia (36828268) Problem Unspecified rotator cuff tear or rupture of unspecified shoulder, not specified as traumatic (M75.100) Active confirmed Rupture of rotator cuff of shoulder (disorder) (376500883) Problem Osseous stenosis of neural canal of cervical region (M99.31) Active confirmed Spinal steno sis in cervical region (52904990) Problem Osseous stenosis of neural canal of lumbar region (M99.33) Active confirmed Spinal stenosis of lumbar region (93958205) Problem Headache (R51) Active confirmed Headach e (02118438) Cervicogenic Problem public health analyst (current) use of anticoagulants (Z79.01) Active confirmed Long-term current use of anticoagulant (085926304) Problem Spinal stenosis, lumbar region with neurogenic claudication (M48.062) Active confirmed Neurogenic claudication (281955583) Problem Myalgia, other site (M79.18) Active confirmed Muscle pain (84916378) VITAL SIGNS Heart Rate 57 /min 03/09/2025 Respiratory Rate 16 /min 03/09/2025 Blood pressure diastolic 53 mm Hg 03/09/2025 Height 5 ft 10 in in 03/09/2025 Blood pressure systolic 120 mm Hg 03/09/2025 Weight 222 lbs 03/09/2025 BMI 31.85 kg/m2 03/09/2025 Encounters Encounter Location Date Provider Diagnosis [facility] [address] [place] [address] 01/10/2025 Malik Stynowick Radiculopathy, cervical region M54.12 ; Radiculopathy, lumbar region M54.16 ; Spondylosis without myelopathy or radiculopathy, lumbar region M47.816 ; Radiculopathy, lumbosacral region M54.17 ; Spinal stenosis, lumbar region with neurogenic claudication M48.062 ; Other intervertebral disc degeneration, lumbar region M51.36 and public health analyst (current) use of anticoagulants Z79.01 [facility] [address] [place] [address] 01/17/2025 Malik Stynowick Radiculopathy, lumba r region M54.16 ; Spinal stenosis, lumbar region with neurogenic claudication M48.062 and Osseous stenosis of neural canal of lumbar region M99.33 [facility] [address] [place] [phone] 02/01/2025 Malik Stynowick Radiculopathy, lumba r region M54.16 ; Spondylosis without myelopathy or radiculopathy, lumbar region M47.816 ; Radiculopathy, cervical region M54.12 ; Radiculopathy, lumbosacral region M54.17 ; Spinal stenosis, lumbar region with neurogenic claudication M48.062 ; Other intervertebral disc degeneration, lumbar region M51.36 ; correction (current) use of anticoagulants Z79.01 and Spondylosis without myelopathy or radiculopathy, lumbosacral region M47.817 [facility] [address] [place] [address] 02/07/2025 Malik Stynowick Spondylosis without myelopathy or radiculopathy, lumbar region M47.816 and Spondylosis without myelopathy or radiculopathy, lumbosacral region M47.817 [facility] [address] [place] [address] 02/21/2025 Malik Stynowick Spondylosis without myelopathy or radiculopathy, lumbar region M47.816 ; Sacroiliitis, not elsewhere classified M46.1 ; Radiculopathy, lumbar region M54.16 ; Radiculopathy, cervical region M54.12 ; Radiculopathy, lumbosacral region M54.17 ; Spinal stenosis, lumbar region with neurogenic claudication M48.062 ; Other intervertebral disc degeneration, lumbar region M51.36 ; correction (current) use of anticoagulants Z79.01 ; Spondylosis without myelopathy or radiculopathy, lumbosacral region M47.817 ; Chronic pain syndrome G89.4 and 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 [facility] [address] [place] [phone] 02/25/2025 Malik ijeomatonyrachel Sacroiliitis, not elsewhere classified M46.1 [facility] [address] [place] [phone] 03/09/2025 Malik nikita Spondylosis without myelopathy or radiculopathy, lumbar region M47.816 ; Sacroiliitis, not elsewhere classified M46.1 ; Radiculopathy, lumbar region M54.16 ; Radiculopathy, cervical region M54.12 ; Radiculopathy, lumbosacral region M54.17 ; Spinal stenosis, lumbar region with neurogenic claudication M48.062 ; Other intervertebral disc degeneration, lumbar region M51.36 ; correction (current) use of anticoagulants Z79.01 ; Spondylosis without myelopathy or radiculopathy, lumbosacral region M47.817 ; Chronic pain syndrome G89.4 and 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 [facility] [address] [place] [phone] 04/13/2025 Malik Stethanick Spondylosis without myelopathy or radiculopathy, lumbar region M47.816 ; Sacroiliitis, not elsewhere classified M46.1 ; Radiculopathy, lumbar region M54.16 ; Radiculopathy, cervical region M54.12 ; Radiculopathy, lumbosacral region M54.17 ; Spinal stenosis, lumbar region with neurogenic claudication M48.062 ; Other intervertebral disc degeneration, lumbar region M51.36 ; correction (current) use of anticoagulants Z79.01 ; Spondylosis without myelopathy or radiculopathy, lumbosacral region M47.817 ; Chronic pain syndrome G89.4 and 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 ASSESSMENTS Encounter Date Diagnosis Assessment Notes Treatment Notes Treatment Clinical Notes 01/10/2025 Radiculopathy, cervical region (ICD-10 - M54.12) 01/17/2025 Radiculopathy, lumbar region (ICD-10 - M54.16) 01/17/2025 Spinal stenosis, lumbar region with neurogenic claudication (ICD-10 - M48.062) 02/01/2025 Spondylosis without myelopathy or radiculopathy, lumbar region (ICD-10 - M47.816) schedule a bilateral L3-5 medial branch nerve block as a diagnostic and potentially therapeutic endeavor to isolate the source of the patient's facet-generated low back pain originating from the L4-5 and L5-S1 facet joints and to ultimately perform radiofrequency ablation for more durable pain relief. The risks of this procedure including pain, bleeding, infection, nerve damage, spinal cord injury, paralysis, total spinal anesthesia resulting in cardiopulmonary arrest/, respiratory distress requiring intubation, neuritis after radiofrequency ablation, hyperglycemia, insomnia, hair loss, muscle atrophy, skin depigmentation, weight gain, fluid retention, adrenal suppression, osteoporosis resulting in fractures, avascular necrosis of the hip, cataracts, bleeding gastric ulcer, worsening pain and failure to relieve pain were discussed and the patient is agreeable to proceeding at this time. 02/01/2025 Radiculopathy, lumbar region (ICD-10 - M54.16) 02/07/2025 Spondylosis without myelopathy or radiculopathy, lumbar region (ICD-10 - M47.816) 02/07/2025 Spondylosis without myelopathy or radiculopathy, lumbosacral region (ICD-10 - M47.817) 02/21/2025 Sacroiliitis, not elsewhere classified (ICD-10 - M46.1) schedule a bilateral sacroiliac joint injection. The risks of this procedure including pain, bleeding, infection, insomnia, hyperglycemia, hair loss, muscle atrophy, skin depigmentation, weight gain, fluid retention, adrenal suppression, immunosuppression, osteoporosis resulting in fractures, avascular necrosis of the hip, cataracts, bleeding gastric ulcer, worsening pain and failure to relieve pain were discussed and the patient is agreeable to proceeding at this time. 02/21/2025 Spondylosis without myelopathy or radiculopathy, lumbar region (ICD-10 - M47.816) 02/25/2025 Sacroiliitis, not elsewhere classified (ICD-10 - M46.1) 03/09/2025 Spondylosis without myelopathy or radiculopathy, lumbar region (ICD-10 - M47.816) 04/13/2025 Spondylosis without myelopathy or radiculopathy, lumbar region (ICD-10 - M47.816) 04/13/2025 Sacroiliitis, not elsewhere classified (ICD-10 - M46.1) 03/09/2025 Sacroiliitis, not elsewhere classified (ICD-10 - M46.1) The patient recently underwent bilateral SIJ injection done on 02/25/25 and reports a 85% reduction of his low back and buttock pain since this procedure. He currently denies a need for any injections or interventions at this time. He states he is still interested in moving forward with previously ordered spinal cord stimulator trial . He is awaiting an [facility] approval before proceeding. He would like to return to the office in 1 month for follow-up and reevaluation of his pain at that time. 03/09/2025 Radiculopathy, lumbar region (ICD-10 - M54.16) 02/21/2025 Radiculopathy, lumbar region (ICD-10 - M54.16) Spinal cord stimulation was discussed with patient for more durable relief of his low back and lower extremity pain and the patient was given a DVD and brochure for more information. She/He would like to schedule a spinal cord stimulator trial at this time. The risks of this procedure including pain, bleeding, infection, epidural hematoma, spinal headache, persistent spinal fluid leak, nerve damage, spinal cord injury, paralysis, worsening pain and failure to relieve pain were discussed and the patient is agreeable to proceeding at this time. 02/01/2025 Radiculopathy, cervical region (ICD-10 - M54.12) 01/17/2025 Osseous stenosis of neural canal of lumbar region (ICD-10 - M99.33) 01/10/2025 Spondylosis without myelopathy or radiculopathy, lumbar region (ICD-10 - M47.816) 01/10/2025 Radiculopathy, lumbar region (ICD-10 - M54.16) Schedule a bilateral L4-5 transforaminal epidural steroid injection. The risks of this procedure including pain, bleeding, infection, spinal headache, persistent spinal fluid leak, epidural hematoma, nerve damage, spinal cord injury, paralysis, total spinal anesthesia resulting in cardiopulmonary arrest/, respiratory distress requiring intubation, insomnia, hyperglycemia, hair loss, muscle atrophy, skin depigmentation, weight gain, fluid retention, adrenal suppression, immunosuppression, osteoporosis resulting in fractures, avascular necrosis of the hip, cataracts, bleeding gastric ulcer, worsening pain and failure to relieve pain were discussed and the patient is agreeable to proceeding at this time. 01/10/2025 Radiculopathy, lumbosacral region (ICD-10 - M54.17) 02/01/2025 Radiculopathy, lumbosacral region (ICD-10 - M54.17) 02/21/2025 Radiculopathy, cervical region (ICD-10 - M54.12) 03/09/2025 Radiculopathy, cervical region (ICD-10 - M54.12) 04/13/2025 Radiculopathy, lumbar region (ICD-10 - M54.16) 04/13/2025 Radiculopathy, cervical region (ICD-10 - M54.12) 03/09/2025 Radiculopathy, lumbosacral region (ICD-10 - M54.17) 02/21/2025 Radiculopathy, lumbosacral region (ICD-10 - M54.17) 02/01/2025 Spinal stenosis, lumbar region with neurogenic claudication (ICD-10 - M48.062) 01/10/2025 Spinal stenosis, lumbar region with neurogenic claudication (ICD-10 - M48.062) 02/01/2025 Other intervertebral disc degeneration, lumbar region (ICD-10 - M51.36) 01/10/2025 Other intervertebral disc degeneration, lumbar region (ICD-10 - M51.36) 02/21/2025 Spinal stenosis, lumbar region with neurogenic claudication (ICD-10 - M48.062) 03/09/2025 Spinal stenosis, lumbar region with neurogenic claudication (ICD-10 - M48.062) 04/13/2025 Radiculopathy, lumbosacral region (ICD-10 - M54.17) 04/13/2025 Spinal stenosis, lumbar region with neurogenic claudication (ICD-10 - M48.062) 02/21/2025 Other intervertebral disc degeneration, lumbar region (ICD-10 - M51.36) 03/09/2025 Other intervertebral disc degeneration, lumbar region (ICD-10 - M51.36) 02/01/2025 public health analyst (current) use of anticoagulants (ICD-10 - Z79.01) 01/10/2025 public health analyst (current) use of anticoagulants (ICD-10 - Z79.01) The patient was instructed to discontinue aspirin for 6 days and Eliquis for 3 days prior to the procedure. I made the patient aware that they will be at an increased risk for a thromboembolic event during this time and they are willing to accept this risk. The patient was instructed to notify their primary care physician and/or multi site leasing consultant to obtain clearance prior to discontinuing this medication. 02/01/2025 Spondylosis without myelopathy or radiculopathy, lumbosacral region (ICD-10 - M47.817) 03/09/2025 correction (current) use of anticoagulants (ICD-10 - Z79.01) 02/21/2025 correction (current) use of anticoagulants (ICD-10 - Z79.01) The patient was instructed to discontinue Plavix for 7 and aspirin for 6 days prior to the procedure. I made the patient aware that they will be at an increased risk for a thromboembolic event during this time and they are willing to accept this risk. The patient was instructed to notify their primary care physician and/or multi site leasing consultant to obtain clearance prior to discontinuing this medication. 04/13/2025 Other intervertebral disc degeneration, lumbar region (ICD-10 - M51.36) 04/13/2025 public health analyst (current) use of anticoagulants (ICD-10 - Z79.01) 03/09/2025 Spondylosis without myelopathy or radiculopathy, lumbosacral region (ICD-10 - M47.817) 02/21/2025 Spondylosis without myelopathy or radiculopathy, lumbosacral region (ICD-10 - M47.817) 03/09/2025 Chronic pain syndrome (ICD-10 - G89.4) 02/21/2025 Chronic pain syndrome (ICD-10 - G89.4) The patient was given a handout explaining the preoperative bathing instructions 04/13/2025 Spondylosis without myelopathy or radiculopathy, lumbosacral region (ICD-10 - M47.817) 04/13/2025 Chronic pain syndrome (ICD-10 - G89.4) 03/09/2025 Fear of injections and transfusions (ICD-10 - F40.231) 02/21/2025 Fear of injections and transfusions (ICD-10 - F40.231) Due to a severe fear of needles and injections, the patient is insisting on IV Sedation with this procedure. The patient was advised she may drink clear liquids up until 2 hours prior to the procedure, but was instructed not to eat for 8 hours prior to the procedure. The inherent risks of anesthesia up to and including airway obstruction potentially resulting in cardiac arrest and were also discussed and the patient is agreeable to proceeding at this time. 04/13/2025 Fear of injections and transfusions (ICD-10 - F40.231) 01/10/2025 Other The above-named patient was evaluated in conjunction with Dr. Zazueta. I have discussed and reviewed all of the pertinent history, physical examination findings and diagnostic imaging results with him. As a result of our discussion, Dr. Zazueta has determined the above assessment and directed the treatment plan. This note was dictated using voice recognition software and therefore inadvertent errors may have occurred. This note was dictated by CRISTAL Holland. Total Time Spent with Patient and Medical Decision Makin minutes 02/01/2025 Other The above-named patient was evaluated in conjunction with Dr. Zazueta. I have discussed and reviewed all of the pertinent history, physical examination findings and diagnostic imaging results with him. As a result of our discussion, Dr. Zazueta has determined the above assessment and directed the treatment plan. This note was dictated using voice recognition software and therefore inadvertent errors may have occurred. This note was dictated by CRISTAL Holland. Total Time Spent with Patient and Medical Decision Makin minutes 02/21/2025 Other The patient was instructed to take this medication following their SCS Trial to prevent infection The above-named patient was evaluated in conjunction with Dr. Zazueta. I have discussed and reviewed all of the pertinent history, physical examination findings and diagnostic imaging results with him. As a result of our discussion, Dr. Zazueta has determined the above assessment and directed the treatment plan. This note was dictated using voice recognition software and therefore inadvertent errors may have occurred. This note was dictated by CRISTAL Holland. Total Time Spent with Patient and Medical Decision Makin minutes 03/09/2025 Other The above-named patient was evaluated in conjunction with Dr. Zazueta. I have discussed and reviewed all of the pertinent history, physical examination findings and diagnostic imaging results with him. As a result of our discussion, Dr. Zazueta has determined the above assessment and directed the treatment plan. This note was dictated using voice recognition software and therefore inadvertent errors may have occurred. This note was dictated by CRISTAL Holland. Total Time Spent with Patient and Medical Decision Makin minutes PLAN OF TREATMENT Pending Test Test Name Order Date MRI : Ankle, left 08/16/2019 MRI : Lumbar Spine without contrast ([id number]) 08/16/2019 Next Appt Details Provider Name:Malik Alice mabry, 04/28/2025 02:30:00 PM, [address] [place], [address], Insurance Providers Payer Name Payer Address Payer Phone Subscriber Number Group Number Insured Name Patient Relationship to Insured Coverage Start Date Coverage End Date [facility] [id number] [place] [phone] [id number] CALLY FABIAN Self - patient is the insured MEDICAL (GENERAL) HISTORY Medical History History ICD Code Hypertension CAD PAD Sleep apnea Asthma GERD BPH AAA COPD AFIB Surgical History Surgery Date(Month/Year) Bilateral rotator cuff repair Appendectomy Cholecystectomy Cardiac stent 07/2022
--- OUTSIDE RECORDS SUMMARY | 2025-04-22 14:33 | XMS_ITS | Referral Summary ---
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 (Primary Dx); Atrial fibrillation with rapid ventricular response (HCC); Infrarenal abdominal aortic aneurysm (AAA) without rupture; Acute on chronic diastolic heart failure (HCC) 04/05/2025 Telephone [facility] [address] [place] [address] Hansel Moon MD 03/31/2025 11:41 AM CDT - 04/02/2025 3:06 PM CDT Hospital Encounter [address] [phone] Josiah Sauceda MD Discharge Disposition: Discharge to home or self care 03/31/2025 2:05 PM CDT Anesthesia Event [facility] Operating Room [address] [place] [phone] Dana Lan MD 03/31/2025 1:10 PM CDT - 03/31/2025 4:10 PM CDT Surgery [facility] Operating Room [address] [place] [phone] Josiah Sauceda MD Insertion of Malleable Penile Prosthesis 03/22/2025 Telephone [facility] Pre Anesthesia Testing [address] [place] [phone] Tianna Lowery 03/22/2025 12:56 PM CDT - 03/22/2025 11:59 PM CDT Hospital Encounter [address] [address] Radiculopathy, thoracic region Discharge Disposition: Discharge to home or self care 03/21/[address] [address] Haley Cuello 03/10/2025 2:00 PM CDT Office Visit 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; Essential hypertension; Mixed hyperlipidemia; PAD (peripheral artery disease); Benign prostatic hyperplasia with nocturia; Other chronic pain; Simple chronic bronchitis (HCC); Multiple lung nodules on CT; Obstructive sleep apnea on CPAP; Other chronic sinusitis 03/01/2025 1:52 PM CDT - 03/01/2025 11:59 PM CDT Hospital Encounter [address] [address] Pre-op evaluation Discharge Disposition: Discharge to home or self care 03/01/2025 1:45 PM CDT - 03/01/2025 11:59 PM CDT Hospital Encounter [facility]iology [address] [place] [phone] Rickettsialpox due to rickettsia akari Discharge Disposition: Discharge to home or self care 03/01/2025 1:40 PM CDT Lab [address] [phone] 02/24/2025 3:30 PM CDT Office Visit 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; Atrial fibrillation with rapid ventricular response (HCC); Infrarenal abdominal aortic aneurysm (AAA) without rupture; Mixed hyperlipidemia; Benign essential hypertension; Obstructive sleep apnea syndrome; Abdominal aortic aneurysm (AAA) without rupture, unspecified part 01/31/2025 Orders Only [facility] [address] [place] [address] [phone] Hansel Moon MD 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 (Primary Dx); Atrial fibrillation with rapid ventricular response (HCC); Infrarenal abdominal aortic aneurysm (AAA) without rupture; Mixed hyperlipidemia; Benign essential hypertension; Obstructive sleep apnea syndrome; Abdominal aortic aneurysm (AAA) without rupture, unspecified part 01/31/2025 Telephone [facility] [address] [place] [address] [phone] Hansel Moon MD 01/28/2025 4:00 PM DINKEY DISPATCHER Lab [facility] Lab [address] [place] [phone] 01/28/2025 12:04 PM DINKEY DISPATCHER - 01/28/2025 11:59 PM DINKEY DISPATCHER Hospital Encounter [facility] Nuclear Medicine [address] [place] [phone] Discharge Disposition: Discharge to home or self care 01/28/2025 12:04 PM DINKEY DISPATCHER - 01/28/2025 11:59 PM DINKEY DISPATCHER Hospital Encounter [facility] Nuclear Medicine [address] [place] [address] Discharge Disposition: Discharge to home or self care 01/28/2025 12:04 PM DINKEY DISPATCHER - 01/28/2025 11:59 PM DINKEY DISPATCHER Hospital Encounter [facility] Nuclear Medicine [address] [place] [address] Discharge Disposition: Discharge to home or self care 01/28/2025 12:04 PM DINKEY DISPATCHER - 01/28/2025 11:59 PM DINKEY DISPATCHER Hospital Encounter [facility] [address] [place] [phone] 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; Atrial fibrillation with rapid ventricular response (HCC); Infrarenal abdominal aortic aneurysm (AAA) without rupture; Acute on chronic diastolic heart failure (HCC); Mixed hyperlipidemia; Benign essential hypertension; Obesity (BMI 30-39.9); Obstructive sleep apnea syndrome; Preoperative cardiovascular examination Discharge Disposition: Discharge to home or self care from Last 3 Months Allergies Active Allergy Reactions Criticality Noted Date Comments Anti-Allergy Medication Vision changes Medium 07/09/20 Blurred vision Cetirizine Headache Low 03/18/2023 Codeine [...] syndrome 10/19/2024 Atherosclerotic heart diseas e of chickaloon coronary artery without angina pectoris 10/14/2024 Benign essential hypertension 10/14/2024 Assessment & Plan (11/23/2024 8:47 AM DINKEY DISPATCHER): Stable continue Lasix Gastroesophageal reflux disease 10/14/2024 Obstructive sleep apnea syndrome 10/14/2024 Overview (10/14/2024): Aug 25, 2017 Entered By: HERMINIA KIRKPATRICK Comment: CPAP Actinic keratosis 08/13/2024 Allergic rhinitis 08/13/2024 Benign neoplasm of colon 08/13/2024 Overview (08/13/2024): Feb 24, 2018 Entered By: HERMINIA KIRKPATRICK Comment: remote prior to 2002Feb 24, 2018 Entered By: HERMINIA KIRKPATRICK Comment: colo 2012 - no polyps D[place] 08/13/2024 Edema, unspecified 08/13/2024 Exposure to potentially [...] management Assessment & Plan (10/14/2024 2:34 PM DINKEY DISPATCHER): >>ASSESSMENT AND PLAN FOR PERSISTENT ATRIAL FIBRILLATION (HCC) WRITTEN ON 03/08/2024 12:01 PM BY SOWMYA ESQUIVEL MD Chronic Stable Continue rate control and AC Continue following with cardiology for management Assessment & Plan (10/14/2024 2:34 PM DINKEY DISPATCHER): >>ASSESSMENT AND PLAN FOR PERSISTENT ATRIAL FIBRILLATION (HCC) WRITTEN ON 09/07/2024 9:57 PM BY SOWMYA ESQUIVEL MD Chronic Stable Continue rate control and AC Continue following with cardiology for management Assessment & Plan (01/25/2024 9:15 PM DINKEY DISPATCHER): Continue following with cardiology for management On [...] past Assessment & Plan (01/26/2024 2:04 PM DINKEY DISPATCHER): CT of the sinus reviewed No acute sinus infection Will refer to ENT, would like to see Dr. 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 [...] 03/21/2023 Assessment & Plan (12/06/2023 9:18 PM DINKEY DISPATCHER): Worsening Recommend following up with pain management [...] Continue medical management Continue following with [facility] surgery Assessment & Plan (11/23/2024 8:47 AM DINKEY DISPATCHER): Status post endovascular abdominal aortic aneurysm repair, [...] artery disease of n ative artery of chickaloon heart with stable angina pectoris 08/01/2022 Assessment [...] cardiology Assessment & Plan (12/09/2022 9:14 PM DINKEY DISPATCHER): S/p 3 stents Continue ASA and plavix [...] atorvastatin Assessment & Plan (11/23/2024 8:47 AM DINKEY DISPATCHER): Stable continue Lipitor Assessment & Plan (03/08/2024 12:02 PM CDT): Stable / clinically quiescent. Will continue to monitor. Continue atorvastatin Assessment & Plan (10/09/2023 2:42 PM DINKEY DISPATCHER): Stable continue Lipitor 80 mg. Assessment & Plan (06/11/2023 7:06 AM CDT): Stable / clinically quiescent. Will continue to monitor. Continue atorvastatin Assessment & Plan (12/09/2022 9:15 PM DINKEY DISPATCHER): Stable / clinically quiescent. Will continue to [...] surveillance. Assessment & Plan (02/06/2022 1:06 PM DINKEY DISPATCHER): Assessment/plan: CT abdomen pelvis as above. If he needs intervention for his abdominal aortic aneurysm this will be addressed at the same time. Chronic bronchitis 12/27/2021 Assessment & Plan (03/09/2025 12:38 PM CDT): Stable Continue albuterol p.r.n., Tussin DM p.r.n., and breztri Assessment & Plan (12/15/2024 10:16 AM DINKEY DISPATCHER): Chronic condition, stable at this time but [...] Diskus Assessment & Plan (12/27/2021 11:03 AM DINKEY DISPATCHER): Stable Continue albuterol p.r.n., Tussin DM p.r.n., Advair Diskus Abdominal aortic aneurysm (AAA) 12/27/2021 Overview (08/13/2024): Aug 29, 2022 Entered By: TIANNA NGUYEN Comment: 5.3 cm; Planned repair by Dr. Chavez in fall 2021. Assessment & Plan (10/09/2023 2:42 PM DINKEY DISPATCHER): Status post EVAR, on his last year [...] surveillance. Assessment & Plan (12/10/2022 5:29 PM DINKEY DISPATCHER): Stable Status post an endovascular surgery Continue following with vascular surgery and continue with medical management Assessment & Plan (09/25/2022 4:35 PM CDT): Status post endovascular abdominal aortic aneurysm repair. Doing well since surgery. CTA abdomen pelvis recently done at [facility] for his GI bleed, no [...] embolization/thrombosis, mesenteric ischemia, pelvic lower extremity ischemia, [place], stroke and . He wished to proceed. I have consulted Dr. Chavez for cardiac risk assessment. Assessment & Plan (02/06/2022 1:06 PM DINKEY DISPATCHER): Assessment/plan: Roughly 5 cm abdominal aortic aneurysm found on routine screening. CT abdomen pelvis ordered for further evaluation. I discussed management options for AAA including intervention at 5 5.5 cm. He will follow-up in 1-[address] scan. Recommend statin therapy. Assessment & Plan (12/27/2021 11:09 AM DINKEY DISPATCHER): Seen on CT of the lumbar spine [...] annual Assessment & Plan (12/10/2022 5:32 PM DINKEY DISPATCHER): Ordered CBC, cmp, lipid, hgb a1c, TSH w/ reflex to t4 He gets his vaccines with the [facility] Zoster vaccine-encourage patient to go to local pharamacy F/u in 1 year for annual Assessment & Plan (12/27/2021 11:20 AM DINKEY DISPATCHER): reviewed CBC, cmp Ordered lipid, hgb a1c, HIV, hep c, and TSH Flu completed Colonoscopy referral given F/u in 1 year for annual Lumbar radiculopathy 01/13/2016 Assessment & Plan (12/27/2021 11:04 AM DINKEY DISPATCHER): Was recently in the hospital for back pain Given Decadron and [place] Referral to pain management given 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 04/16/2015 Chronic pain 04/16/2015 Assessment & Plan (03/09/2025 12:37 PM CDT): Cont following with pain management Assessment & Plan (02/24/2025 12:59 PM CDT): Follows with pain management Going for spinal cord stimulation Assessment & Plan (12/27/2021 11:04 AM DINKEY DISPATCHER): Due to cervical disc herniation and lumbar radiculopathy Referral to pain management given Osteoarthritis of cervical spine without myelopa thy 04/16/2015 Assessment & Plan (12/27/2021 11:03 AM DINKEY DISPATCHER): Stable Continue with naproxen as needed Impingement [...] months Assessment & Plan (12/15/2024 10:17 AM DINKEY DISPATCHER): BP Readings from Last 3 Encounters: 12/14/24 [...] months Assessment & Plan (12/10/2022 5:30 PM DINKEY DISPATCHER): Bp in the office today BP Readings [...] Hydrochlorothiazide Assessment & Plan (02/06/2022 1:07 PM DINKEY DISPATCHER): Assessment/plan: Hydrochlorothiazide Assessment & Plan (12/27/2021 11:20 AM DINKEY DISPATCHER): Bp in the office today BP Readings from Last 1 Encounters: 12/27/21 130/76 at goal Continue current regimen of Hydrochlorothiazide 25 mg Recommend DASH diet, heart-healthy lifestyle, exercise. Discussed the risks of hypertension. F/u in 3 months Productive cough 04/11/2015 Assessment & Plan (12/06/2023 9:18 PM DINKEY DISPATCHER): New concern Not at goal Covid and flu negative Start z pack Recommend fluids, rest, humidification if needed. He was instructed to call back if symptoms do not improved in a week, or if worsening ones arise. Education provided. F/u prn RILEY (dyspnea on exertion) 04/11/2015 Heartburn 04/11/2015 Assessment & Plan (12/27/2021 11:05 AM DINKEY DISPATCHER): Stable / clinically quiescent. Will continue to monitor. Continue omeprazole 40 mg daily Hiatal hernia 04/11/2015 Assessment & Plan (03/08/2024 3:44 PM CDT): Chronic Worsening symptoms Interested in a referral to surgery Referral palced Assessment & Plan (12/27/2021 11:05 AM DINKEY DISPATCHER): Stable / clinically quiescent. Will continue to [...] omeprazole Assessment & Plan (12/09/2022 9:16 PM DINKEY DISPATCHER): Stable Continue omeprazole Benign prostatic hyperplasia with [...] needed Assessment & Plan (12/10/2022 5:31 PM DINKEY DISPATCHER): Continue albuterol as needed Class 1 obesity [...] today He will need clearance from his door person Obesity 10/19/2024 03/09/2025 Erectile dysfunction 10/14/2024 025 [...] and flu swab negative Azithromycin sent to [facility] given lung exam F/u in 1 week Hospital discharge follow-up 09/05/2022 02/24/2025 Assessment & Plan (01/25/2024 9:15 PM DINKEY DISPATCHER): Med list reviewed problem list reviewed Follow [...] 025 Assessment & Plan (12/27/2021 11:07 AM DINKEY DISPATCHER): Stable / clinically quiescent. Will continue to monitor. Continue tamsulosin 0.4 mg nightly Itch 04/11/2015 03/09/2025 Immunizations Immunization Administration Dates Next Due COVID-19 [...] 09/16/2022 ZOSTER LIVE 11/07/2016 ZOSTER Recombinant 04/20/2018,01/18/2017 Social History Tobacco Use Types Packs/Day Years Used Date Smoking Tobacco: Never Passive Smoke Exposure: Never Smokeless Tobacco: Never Tobacco Cessation:Counseling Given: Yes Alcohol Use Standard Drinks/Week Comments No 0 (1 standard drink = 0.6 oz pur e alcohol) [facility] Utilities Answer Date Recorded In the past [...] often do you attend chur ch or sikhism services? Never 05/27/2024 Do you belong to any clubs o r organizations such as confucianist groups, unions, fraternal or athletic groups, or [...] place to sleep or slept in a usp (including now)? No 01/26/2024 Housing Stability Vital Sign Answer Justin e Recorded In the last 12 months, was t here a time when you were not able to pay the mortgage or rent on time? No 05/27/2024 In the past 12 months, how m any times have you moved where you were living? 0 05/27/2024 At any time in the past 12 m [facility], were you homeless or living in a usp (including now)? No 05/27/2024 Personal Safety Answer [...] on file Legal Sex Male 2:57 AM DINKEY DISPATCHER Gender Identity Not on file Sexual Orientation Not on file Last Filed Vital Signs Vital Sign Reading [...] 03/31/2025 12:20 PM CDT Plan of Treatment Not on file Medical Devices Implanted Type Area Sheet Pile Driver Operator Device Identifier Shelf Expiration Date Model / Serial / Lot [employer] Excluder 16mm 13.5-14.5mm 11.5cm Stent Abrasion Resistant [id number] - [id number] - [id number] Implanted:Qty : 1 on 08/30/2022 by Jack Pritchard MD at [facility] Endoprosthesis Left: Iliac [employer] [id number] 05/04/2025 [id number] / [id number] / [employer] Excluder 18mm 14.5-16.5mm 9.5cm Stent Abrasion Resistant [id number] - [id number] - [id number] Implanted:Qty : 1 on 08/30/2022 by Jack Pritchard MD at [facility] Endoprosthesis Right: Iliac [employer] [id number] 07/20/2025 [id number] / [id number] / Wl [employer] Excluder 14.5mm 28.5mm 12cm 5.5cm Conformable Active Control Trunk [id number] - [id number] - [id number] Implanted:Qty : 1 on 08/30/2022 by Jack Pritchard MD at [facility] Endoprosthesis N/A: Aorta [employer] [id number] 06/09/2025 [id number] / [id number] / [employer] Richy Prosthesis Penile Tactra Od11mm Malleable Sterile Latex Free [id number] - Sn/A - [id number] Implanted:Qty : 1 on 03/31/2025 by Josiah Sauceda MD at [facility] Other - see comments N/A: Penis [employer] Richy [id number] 08/31/2029 [id number] / N/A / [id number] Description:Penile Implant [employer] Resolute [place] 2.5mm 2.1-2.7fr 30mm 140cm Rapid Exchange [id number] - [id number] Implanted:Qty : 1 on 08/01/2022 by Nicolas Aguiar MD at [facility] [employer] 01/08/2025 [id number] / / [id number] [employer] Resolute [place] 3mm 2.1-2.7fr 30mm 140cm Rapid Exchange Radiopaque [id number] - [id number] Implanted:Qty : 1 on 08/01/2022 by Nicolas Aguiar MD at [facility] [employer] 01/28/2025 [id number] / / [id number] [employer] Resolute [place] 3mm 2.1-2.7fr 8mm 140cm Rapid Exchange Radiopaque 1 [id number] - [id number] Implanted:Qty : 1 on 08/01/2022 by Nicolas Aguiar MD at [facility] [employer] 05/09/2024 [id number] / / [id number] [employer] Richy Angio-Seal Vip 6fr Closere Device [id number] - [id number] Implanted:Qty : 1 on 08/01/2022 by Nicolas Aguiar MD at [facility] [employer] Richy 04/30/2023 [id number] / / [id number] [employer] Perclose 6fr Vascular Closure 51562-81 - [id number] Implanted:Qty : 1 on 08/30/2022 by Jack Pritchard MD at [facility] Left: Iliac [employer] 05/30/2024 [id number] 3 / / Ch[employer] Perclose 6fr Vascular Closure [id number] Implanted:Qty : 1 on 08/30/2022 by Jack Pritchard MD at [facility] Left: Iliac [employer] 05/30/2024 [id number] 3 / / Ch[employer] Perclose 6fr Vascular Closure 55233-48 [id number] Implanted:Qty : 1 on 08/30/2022 by Jack Pritchard MD at [facility] Right: Iliac [employer] 05/30/2024 [id number] 3 / / Ch[employer] Perclose 6fr Vascular Closure 65384-00 [id number] Implanted:Qty : 1 on 08/30/2022 by Jack Pritchard MD at [facility] Right: Iliac [employer] 05/30/2024 [id number] 3 / / Procedures Procedure Name Priority Date/Time Associated Diagnosis Comments ECG 12-LEAD Routine 04/13/2025 1:38 PM CDT 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 Atrial fibrillation with rapid ventricular response (HCC) 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 on chronic diastolic heart failure (HCC) [place] AN PROCEDURE PLACEHOLDER Routine 03/31/2025 2:33 PM CDT [place] AN ELECTIVE ENDOTRACHEAL AIRWAY Routine 03/31/2025 2:33 [...] PM CDT EGFR Routine 01/31/2025 12:29 PM DINKEY DISPATCHER 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 Atrial fibrillation with rapid ventricular response (HCC) Infrarenal abdominal aortic aneurysm (AAA) without rupture Mixed hyperlipidemia Benign essential hypertension Obstructive sleep apnea syndrome Abdominal aortic aneurysm (AAA) without rupture, unspecified part DIFFERENTIAL AUTO Routine 01/31/2025 12:29 PM DINKEY DISPATCHER 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 Atrial fibrillation with rapid ventricular response (HCC) Infrarenal abdominal aortic aneurysm (AAA) without rupture Mixed hyperlipidemia Benign essential hypertension Obstructive sleep apnea syndrome Abdominal aortic aneurysm (AAA) without rupture, unspecified part THYROID FUNCTION CASCADE Routine 01/31/2025 12:29 PM DINKEY DISPATCHER 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 Atrial fibrillation with rapid ventricular response (HCC) Infrarenal abdominal aortic aneurysm (AAA) without rupture Mixed hyperlipidemia Benign essential hypertension Obstructive sleep apnea syndrome Abdominal aortic aneurysm (AAA) without rupture, unspecified part LIPID PANEL Routine 01/31/2025 12:29 PM DINKEY DISPATCHER 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 Atrial fibrillation with rapid ventricular response (HCC) Infrarenal abdominal aortic aneurysm (AAA) without rupture Mixed hyperlipidemia Benign essential hypertension Obstructive sleep apnea syndrome Abdominal aortic aneurysm (AAA) without rupture, unspecified part COMPREHENSIVE METABOLIC PANEL Routine 01/31/2025 12:29 PM DINKEY DISPATCHER 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 Atrial fibrillation with rapid ventricular response (HCC) Infrarenal abdominal aortic aneurysm (AAA) without rupture Mixed hyperlipidemia Benign essential hypertension Obstructive sleep apnea syndrome Abdominal aortic aneurysm (AAA) without rupture, unspecified part CBC WITH AUTO DIFFERENTIAL Routine 01/31/2025 12:29 PM DINKEY DISPATCHER 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 Atrial fibrillation with rapid ventricular response (HCC) Infrarenal abdominal aortic aneurysm (AAA) without rupture Mixed hyperlipidemia Benign essential hypertension Obstructive sleep apnea syndrome Abdominal aortic aneurysm (AAA) without rupture, unspecified part MAGNESIUM Routine 01/31/2025 12:29 PM DINKEY DISPATCHER 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 Atrial fibrillation with rapid ventricular response (HCC) Infrarenal abdominal aortic aneurysm (AAA) without rupture Mixed hyperlipidemia Benign essential hypertension Obstructive sleep apnea syndrome Abdominal aortic aneurysm (AAA) without rupture, unspecified part STRESS TEST FOR DUAL READ Schedule Routine, Read Routine (OP Routine) 01/28/2025 3:55 PM DINKEY DISPATCHER 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 Atrial fibrillation with rapid ventricular response (HCC) 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 on chronic diastolic heart failure (HCC) Mixed hyperlipidemia Benign essential hypertension Obesity (BMI 30-39.9) Obstructive sleep apnea syndrome Preoperative cardiovascular examination NM MPI SPECT (REST AND/OR STRESS) MULTIPLE STUDIES Schedule Routine, Read Routine (OP Routine) 01/28/2025 3:55 PM DINKEY DISPATCHER 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 Atrial fibrillation with rapid ventricular response (HCC) 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 on chronic diastolic heart failure (HCC) Mixed hyperlipidemia Benign essential hypertension Obesity (BMI 30-39.9) Obstructive sleep apnea syndrome Preoperative cardiovascular examination from Last 3 Months Results * ECG 12 lead (04/13/2025 1:38 PM CDT) us Hansel Moon MD ECG ORDERABLES Final Resu lt * W[place] AN ELECTIVE ENDOTRACHEAL AIRWAY, [place] AN PROCEDURE PLACEHOLDER (03/31/2025 2:33 PM CDT) Narrative Tiffanie Quiros CRNA - 03/31/2025 2:33 PM CDT Tiffanie Quiros CRNA 03/31/2025 2:34 PM Airway Patient location: OR Urgency: elective Date/time: 03/31/2025 2:14 PM Indications for airway management: anesthesia Difficult airway: no Staff: Placed by: KRYSTAL: Tiffanie Quiros CRNA Emergent airway documentation: Risks [...] Suresh Schilling D.O. AP: AP Report ID: [id number] Reading Location: [place] [address] Procedure Note Suresh Schilling, DO - 03/28/2025 [...] Suresh Schilling D.O. AP: AP Report ID: [id number] Reading Location: [id number] us Malik Zazueta MD IMG CT PROCEDURES Fi [...] Ericka Lemos M.D. TW: TW Report ID: [id number] Reading Location: [id number] Procedure Note Ericka Lemos MD - 03/08/2025 [...] Ericka Lemos M.D. TW: TW Report ID: [id number] Reading Location: [id number] Malik Zazueta MD IMG XR PROCEDURES Fi nal Result * ECG 12 lead (03/01/2025 2:25 PM CDT) 03/01/2025 2:25 PM CDT Narrative [facility] - 03/01/2025 3:20 PM CDT Vent Rate: 53 bpm RR Interval: 1119 msec WV Interval: 240 msec QRS Duration: 103 msec QT Interval: 472 msec QTC Interval: 455 msec P-R-T [place]: 23 - 21 - 51 degrees IMPRESSION: SINUS BRADYCARDIA WITH FIRST DEGREE AV BLOCK ABNORMAL ECG Electronically Signed By: Sarmad Morales MD us Malik Zazueta MD ECG ORDERABLES Emily l Result [facility] * (ABNORMAL) eGFR (03/01/2025 1:54 PM CDT) [...] ORDERABLES Final Result LORNA VARGHESE (LAST) 1 [facility] [place] [address] * (ABNORMAL) Differential, auto (03/01/2025 1:54 PM [...] Neutrophil pct 74.9 % [facility] ([place]) Comment: Interpretive Data Percent cell count reference ranges are not reported, since discordance with absolute values may lead to misinterpretation of CBC data. Current Interpretive Data was last revised on 2018. Imm gran pct 3.3 % [facility] ([place]) Comment: Interpretive Data Percent cell count reference ranges are not reported, since discordance with absolute values may lead to misinterpretation of CBC data. Current Interpretive Data was last revised on 2018. Lymphocyte pct 11.9 % [facility] ([place]) Comment: Interpretive Data Percent cell count reference ranges are not reported, since discordance with absolute values may lead to misinterpretation of CBC data. Current Interpretive Data was last revised on 2018. Monocyte pct 9.0 % [facility] ([place]) Comment: Interpretive Data Percent cell count reference ranges are not reported, since discordance with absolute values may lead to misinterpretation of CBC data. Current Interpretive Data was last revised on 2018. Eosinophil pct 0.6 % [facility] ([place]) Comment: Interpretive Data Percent cell count reference ranges are not reported, since discordance with absolute values may lead to misinterpretation of CBC data. Current Interpretive Data was last revised on 2018. Basophil pct 0.3 % [facility] ([place]) Comment: Interpretive Data Percent cell count reference ranges are not reported, since discordance with absolute values may lead to misinterpretation of CBC data. Current Interpretive Data was last revised on 2018. Blood 03/01/2025 1:54 PM CDT 03/01/2025 2:21 PM CDT Malik Zazueta MD LAB BLOOD ORDERABLES Final Result [facility] ([place]) 1 [facility] [place] [address] * Urinalysis reflex to microscopic (03/01/2025 1:54 PM CDT) Color, ur Yellow Yellow Clarity, ur Clear Clear [facility] ([place]) Specific gravity, ur 1.013 1.003 - 1.030 [facility] ([place]) pH, urine 5.5 [facility] ([place]) Comment: Interpretive Data U rine pH is affected by diet, medications, systemic acid-base disturbances, and renal tubular function. pH may affect urinary stone formation. For example, urine pH below 6.0 may help reduce the tendency for calcium phosphate stones and pH greater than 6.0 may reduce the tendency for uric acid stone formation. Source: [facility] Current Interpretive Data was last revised on 2017 Protein, ur ql Negative Negative [facility] ([place]) Glucose, ur ql Negative Negative [facility] R [...] Zazueta MD LAB URINE ORDERABLES Final Result [facility] ([place]) 1 [facility] [place] [address] * (ABNORMAL) CBC with auto differential (03/01/2025 [...] NRBC abs 0.00 0.00 - 0.01 K/cumm [facility] ([place]) Blood 03/01/2025 1:54 PM CDT 03/01/2025 2:21 PM CDT Malik Zazueta MD LAB BLOOD ORDERABLES Final Result [facility] ([place]) 1 [facility] [place] [address] * aPTT (03/01/2025 1:54 PM CDT) aPTT 38 28 - 38 sec [facility] ([place]) Comment: Interpretive Data Heparin therapeutic range: 66.0 - 100.0 seconds. Range based on correlation with therapeutic heparin activity range of 0.3 - 0.7 Units/mL. Current interpretive data was last revised on 2023. Blood 03/01/2025 1:54 PM CDT 03/01/2025 2:21 PM CDT Malik Zazueta MD LAB BLOOD ORDERABLES Final Result Performing Organization Address City/[facility] Co de Phone Number LORNA VARGHESE ([place]) 1 [facility] [place] [address] * Erythrocyte sedimentation rate (03/01/2025 1:54 PM CDT) Erythrocyte sedimentation rate 14 1 - 20 mm/hr Blood 03/01/2025 1:54 PM CDT 03/01/2025 2:21 PM CDT Malik Zazueta MD LAB BLOOD ORDERABLES Final Result Performing Organization Address [facility] de Phone Number LORNA VARGHESE ([place]) 1 [facility] [place] [address] * Protime-INR (03/01/2025 1:54 PM CDT) PT 13.0 9.7 - 13.0 sec LORNA [facility] ([place]) INR 1.20 0.90 - 1.20 LORNA [facility] ([place]) Comment: Interpretive data Oral anticoagulant therapeutic ranges: Venous thromboembolism prophylaxis or treatment: 2.0-3.0 CARDIOLOGY Standard range: 2.0-3.0 High-intensity range: 2.5-3.5 Refer to indication-specific guidelines for appropriate target ranges for prosthetic heart valve replacement. Current interpretive data was last revised on 2019. Blood 03/01/2025 1:54 PM CDT 03/01/2025 2:21 PM CDT Malik Zazueta MD LAB BLOOD ORDERABLES Final Result LORNA VARGHESE (LAST) 1 [facility] [place] [address] * CRP (acute phase) (03/01/2025 1:54 PM CDT) CRP <3.0 <=10.0 mg/L Blood 03/01/2025 1:54 PM CDT 03/01/2025 2:21 PM CDT Malik Zazueta MD LAB BLOOD ORDERABLES Final Result Performing Organization Address City/[facility]/ZIP Co de Phone Number LORNA VARGHESE ([place]) 1 [facility] [place] [address] * (ABNORMAL) Basic metabolic panel (03/01/2025 1:54 PM CDT) Pathologist [facility] Sodium 140 135 - 145 mmol/L Potassium, pl 4.0 3.3 - 4.9 mmol/L [facility] ([place]) Chloride 100 97 - 110 mmol/L [facility] ([place]) CO2 28 22 - 32 mmol/L [facility] ([place]) Anion gap 12 2 - 15 mmol/L [facility] ([place]) BUN 30(H) 6 - 25 mg/dL [facility] ([place]) Creatinine 1.66(H) 0.80 - 1.30 mg/dL [facility] ([facility]) Glucose 118 70 - 199 mg/dL [facility] ([facility]) [...] 2022. Calcium 8.8 8.5 - 10.3 mg/dL [facility] ([place]) Blood 03/01/2025 1:54 PM CDT 03/01/2025 2:21 PM CDT us Malik Zazueta MD LAB BLOOD ORDERABLES Final Result Performing Organization Address City/[facility] Co de Phone Number [place]) 1 [facility] [place] [address] * (ABNORMAL) eGFR (01/31/2025 12:29 PM DINKEY DISPATCHER) eGFR 46(L) >=60 mL/min/1. 73 m2 Comment: [...] reviewed 2021. Blood 01/31/2025 12:2 9 PM DINKEY DISPATCHER 01/31/2025 1:50 PM DINKEY DISPATCHER us Hansel Moon MD LAB BLOOD ORDERABLES Final Result [place] [place] 1 [facility] [place] [address] * Differential, auto (01/31/2025 12:29 PM DINKEY DISPATCHER) Neutrophil abs 5.9 1.5 - 6.5 K/cumm Imm gran abs 0.1 0.0 - 0.1 K/cumm [facility] ([place]) Lymphocyte abs 1.5 0.8 - 3.3 K/cumm [facility] ([place]) Monocyte abs 0.6 0.2 - 0.8 K/cumm [facility] ([place]) Eosinophil abs 0.2 0.0 - 0.5 K/cumm [...] Imm gran pct 1.6 % [facility] ([place]) Comment: Interpretive Data [...] on 2018. Blood 01/31/2025 12:2 9 PM DINKEY DISPATCHER 01/31/2025 1:50 PM DINKEY DISPATCHER us Hansel Moon MD LAB BLOOD ORDERABLES Final Result LORNA VARGHESE ([place]) 1 [facility] [place] [address] * Thyroid Function [place] (01/31/2025 12:29 PM DINKEY DISPATCHER) [facility] TSH 3.09 0.30 - 4.20 mcIUnit/mL Blood 01/31/2025 12:2 9 PM DINKEY DISPATCHER 01/31/2025 1:50 PM DINKEY DISPATCHER Hansel Moon MD LAB BLOOD ORDERABLES Final Result Performing Organization Address City/[facility]/ZIP Co de Phone Number LORNA VARGHESE ([place]) 1 [facility] [place] [address] * (ABNORMAL) CBC with auto differential (01/31/2025 12:29 PM DINKEY DISPATCHER) [facility] WBC 8.3 3.8 - 9.9 K/cumm Hgb [...] (LAST) MCH 33.0 27.1 - 33.3 pg [facility] ([place]) MCHC 32.4 32.3 - 35.7 g/dL [facility] ([place]) RDW CV 15.9(H) 11.1 - 14.9 % [facility] ([place]) RDW SD 60.3(H) 35.7 - 48.1 fL [facility] ([place]) NRBC abs 0.00 0.00 - 0.01 K/cumm [facility] ([place]) Blood 01/31/2025 12:2 9 PM DINKEY DISPATCHER 01/31/2025 1:50 PM DINKEY DISPATCHER Hansel Moon MD LAB BLOOD ORDERABLES Final Result Performing Organization Address City/State/[facility] Co de Phone Number LORNA VARGHESE ([place]) 1 [facility] [place] [address] * Magnesium (01/31/2025 12:29 PM DINKEY DISPATCHER) Magnesium 1.7 1.4 - 2.5 mg/dL Blood 01/31/2025 12:2 9 PM DINKEY DISPATCHER 01/31/2025 1:50 PM DINKEY DISPATCHER Hansel Moon MD LAB BLOOD ORDERABLES Final Result Performing Organization Address [facility] de Phone Number LORNA VARGHESE ([place]) 1 [facility] [place] [address] * Lipid panel (01/31/2025 12:29 PM DINKEY DISPATCHER) Cholesterol 144 30 - 199 mg/dL Comment: [...] 2018. Triglycerides 104 <=149 mg/dL [facility]NA VAR[facility] ([place]) Comment: Interpretive Data Ages < or = [...] mg/dL High: >160 mg/dL Calculated using the Reid LDL-C estimating equation. This equation was implemented on 2024. Prior to this date LDL-C was estimated using the Friedewald equation. Literature References: 1. Expert Panel on Integrated Guidelines for Cardiovascular Health and Risk Reduction in Children and Adolescents. Pediatrics 2011;128:S213 2. NCEP Expert Panel. Circulation 2004;110:227 3. Reid Olivares et al. SACHIN Cardiol. 2020 March 31;5(5):540-548. doi: 10.1001/jamacardio.2020.0013 Current Interpretive Data was last revised on 2024. Non-HDL Cholesterol 98 mg/dL LORNA VARGHESE ([place]) Comment: Interpretive Data [...] [facility] ([facility]) Blood 01/31/2025 12:2 9 PM DINKEY DISPATCHER 01/31/2025 1:50 PM DINKEY DISPATCHER us Hansel Moon MD LAB BLOOD ORDERABLES Final Result [facility] ([place]) 1 [facility] [place] [address] * (ABNORMAL) Comprehensive metabolic panel (01/31/2025 12:29 PM DINKEY DISPATCHER) Sodium 140 135 - 145 mmol/L Potassium, [...] S pecimen Blood 01/31/2025 12:2 9 PM DINKEY DISPATCHER 01/31/2025 1:50 PM DINKEY DISPATCHER us Hansel Moon MD LAB BLOOD ORDERABLES Final Result [facility] ([place]) 1 [facility] [place] [address] * NM MPI SPECT (Rest and/or Stress) Multiple Studies (01/28/2025 3:55 PM DINKEY DISPATCHER) Anatomical Region Laterality Modality Body N/A Nuclear Medicine Impressions 01/31/2025 7:26 PM DINKEY DISPATCHER 1. No scintigraphic evidence of myocardial ischemia. 2. Normal left ventricular size and systolic function. I personally supervised and interpreted the stress test. Copy to Sowmya Esquivel MD John Lehman, MD 01/31/2025 Narrative 01/31/2025 7:26 PM DINKEY DISPATCHER Patient Id: Chris Julio is a 89 y.o. male. MR#: [id number] Study date: 01/28/2025 EXAM DESCRIPTION: NM MPI [...] ratio of 0.82 . Hansel Moon MD IMG NM PROCEDURES Final Re sult * Stress Test for Myocardial Perfusion (01/28/2025 3:55 PM DINKEY DISPATCHER) Anatomical Region Laterality Modality Nuclear Medicine Impressions 01/28/2025 3:01 PM DINKEY DISPATCHER 1. EKG portion of the stress test is negative for ischemia. 2. Nuclear images pending. I personally supervised and interpreted the stress test. Copy to Sowmya Esquivel MD John Lehman, MD 01/28/2025 Narrative 01/28/2025 3:01 PM DINKEY DISPATCHER Patient Id: Chris Julio is a 89 y.o. male. MR#: [id number] Study date: 01/28/2025 EXAM DESCRIPTION: STRESS LEXISCAN [...] Julio is a 89 y.o. male. MR#: [id number] Study date: 01/28/2025 EXAM DESCRIPTION: STRESS LEXISCAN [...] Final Result from Last 3 Months Insurance [facility] CHOICE [facility] [place] [address] Advance Directives For more information, please contact: [phone] * Full Code (Latest Code Status on [...] 9:44 PM 01/15/2024 12:52 AM Care Teams Ball Worker Relationship Specialty Start Date End Date Sowmya Esquivel MD [address] [place] [address] [place] [address] PCP - General Family Medicine 12/27/21 Hansel Moon MD [address] [address] Consulting Physician Cardiology 03/10/25 Malik Zazueta MD [address] [place] [address] Anesthesiologist Pain Management 03/10/25 [place] [address] [place] [address] Consulting Physician Urology 03/10/25
--- OUTSIDE RECORDS SUMMARY | 2025-04-22 14:33 | XMS_ITS ---
Author Organization [facility] Address [address] [place] [address] [place] [address] Care Team Providers Care Hydraulic Corrugating Machine Operator Name Role Phone LUIS HARDY MD, [facility] Primary Care Provide r Unavailable Malik Zazueta Unavailable [phone] [place], [place] Unavailable Unavailable ALLERGIES Allergen (clinical drug ingredient) Drug/Non Drug Allergy documented on EMR Reaction Allergy Type Onset Date Status cetirizine Cetirizine headache Drug Allergy Activ e codeine Codeine rash Drug Allergy Active REASON FOR VISIT Follow Up, Right > Left Low Back Pain, Right = Left Lower Extremity Pain MEDICATIONS Medication SIG (Take, Route, Frequency, Duration) Notes Start Date End Date Status Doxycycline Hyclate 100 MG 1 tablet Oral ly twice a day for 5 days Active Metoprolol Succinate 25 MG 1 capsule Ora lly Once a day for 30 day(s) Active Advair Diskus 100-50 MCG/ACT 1 puff Inha lation Twice a day Active Oseltamivir Phosphate 75 MG TAKE 1 CAPSU LE BY MOUTH TWICE DAILY FOR 5 DAYS Oral for 5 Active Chlorhexidine Gluconate 4 % as directed Externally prior to surgery for 2 days Active Tamsulosin HCl 0.4 MG 1 capsule Orally O nce a day for 30 day(s) Active Famotidine 40 MG Oral for 90 A ctive Breztri Aerosphere 160-9-4.8 MCG/ACT INHALE 2 PUFFS TWICE DAILY Inhalation for 30 Active Furosemide 40 MG TAKE 1 TABLET BY MOUTH TWICE DAILY Oral for 90 Active Potassium Chloride Shaina ER 2 0 MEQ TAKE 2 TABLETS BY MOUTH ONCE DAILY Oral for 10 Active Plavix 75 MG 1 tablet Orally Once a day for 30 day(s) Active Albuterol Sulfate HFA 108 (9 0 Base) MCG/ACT 2 puffs as needed Inhalation every 6 hrs Active hydroCHLOROthiazide 25 MG 1 tablet in th e morning Orally Once a day for 30 day(s) Active Omeprazole 20 MG 1 capsule Orally Onc e a day for 30 day(s) Active Aspirin 81 MG 1 capsule Orally Onc e a day for 30 day(s) Active Atorvastatin Calcium 80 MG 1 tablet Oral ly Once a day for 30 day(s) Active SOCIAL HISTORY Tobacco Use: Social History Observation Description Date Details (start date - stop date) Former Smoker NA - NA Sex Assigned At : Social History Observation Description Sex Assigned At Unknown Tobacco Use/Smoking Question Answer Notes Are you a former smoker VITAL SIGNS Blood pressure systolic 120 mm Hg 03/09/20 25 Blood pressure diastolic 53 mm Hg 025 Heart Rate 57 /min 03/09/2025 Respiratory Rate 16 /min 03/09/2025 Height 5 ft 10 in in 03/09/2025 Weight 222 lbs 03/09/2025 BMI 31.85 kg/m2 03/09/2025 Encounters Encounter Location Date Provider Diagnosis [facility] [address] [place] [id number] 03/09/2025 Malik Zazueta Spondylosis without myelopathy or radiculopathy, lumbar region M47.816 ; Sacroiliitis, not elsewhere classified M46.1 ; Radiculopathy, lumbar region M54.16 ; Radiculopathy, cervical region M54.12 ; Radiculopathy, lumbosacral region M54.17 ; Spinal stenosis, 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16) 03/09/2025 Radiculopathy, cervical region (ICD-10 - M54.12) 03/09/2025 Radiculopathy, lumbosacral region (ICD-10 - M54.17) 03/09/2025 Spinal stenosis, lumbar region with neurogenic claudication (ICD-10 - M48.062) 03/09/2025 Other intervertebral disc degeneration, lumbar region (ICD-10 - M51.36) 03/09/2025 terminal operations supervisor (current) use of anticoagulants (ICD-10 - Z79.01) 03/09/2025 Spondylosis without myelopathy or radiculopathy, lumbosacral region (ICD-10 - M47.817) 03/09/2025 Chronic pain syndrome (ICD-10 - G89.4) 03/09/2025 Fear of injections and transfusions (ICD-10 - F40.231) 03/09/2025 Other The above-named patient was evaluated [...] Medical Decision Makin minutes PLAN OF TREATMENT Treatment Notes Assessment Notes Sacroiliitis, not elsewhere classified T he patient recently underwent bilateral SIJ injection done [...] reevaluation of his pain at that time. Other The above-named patient was evaluated in [...] with Patient and Medical Decision Makin minutes Next Appt Details Follow Up: 4 Weeks OPV, Reas on: Provider Name:Malik Alice mabry, 04/28/2025 02:30:00 PM, [address] [place] [address], [phone], Progress Notes * Examination Category Sub-Category Detail [...]
--- OUTSIDE RECORDS SUMMARY | 2025-04-22 14:34 | XMS_ITS ---
Author Organization [facility] Address [address] [place] [address] [place] [address] Care Team Providers Care Transfer Table Operator Helper Name Role Phone LUIS HARDY MD, [facility] Primary Care Provide r Unavailable Opheliatonyrachel Malik Unavailable [phone] [place], [place] Unavailable Unavailable ALLERGIES Allergen (clinical drug ingredient) Drug/Non Drug Allergy documented on EMR Reaction Allergy Type Onset Date Status cetirizine Cetirizine headache Drug Allergy Activ e codeine Codeine rash Drug Allergy Active REASON FOR VISIT FOLLOW UP MEDICATIONS Medication SIG (Take, Route, Frequency, Duration) Notes Start Date End Date Status Furosemide 40 MG TAKE 1 TABLET BY MOUTH TWICE DAILY Oral for 90 Active Doxycycline Hyclate 100 MG 1 tablet Oral ly twice a day for 5 days Active Potassium Chloride Shaina ER 2 0 [...] PUFFS TWICE DAILY Inhalation for 30 Active hydroCHLOROthiazide 25 MG 1 tablet in th e morning Orally Once a day for 30 day(s) Active Omeprazole 20 MG 1 capsule Orally Onc e a day for 30 day(s) Active Plavix 75 MG 1 tablet Orally Once a day for 30 day(s) Active Albuterol Sulfate HFA 108 (9 0 Base) MCG/ACT 2 puffs as needed Inhalation every 6 hrs Active Advair Diskus 100-50 MCG/ACT 1 puff Inha lation Twice a day Active Atorvastatin Calcium 80 MG 1 tablet Oral ly Once a day for 30 day(s) Active Aspirin 81 MG 1 capsule Orally Onc e a day for 30 day(s) Active Metoprolol Succinate 25 MG 1 capsule Ora lly Once a day for 30 day(s) Active SOCIAL HISTORY Tobacco Use: Social History Observation Description Date Details (start date - stop date) Former Smoker NA - NA Sex Assigned At : Social History Observation Description Sex Assigned At Unknown Tobacco Use/Smoking Question Answer Notes Are you a former smoker Encounters Encounter Location Date Provider Diagnosis [facility] [address] [place] [phone] 04/13/2025 Malik Zazueta Spondylosis without myelopathy or radiculopathy, lumbar region M47.816 ; Sacroiliitis, not elsewhere classified M46.1 ; Radiculopathy, lumbar region M54.16 ; Radiculopathy, cervical region M54.12 ; Radiculopathy, lumbosacral region M54.17 ; Spinal stenosis, lumbar region with neurogenic claudication M48.062 ; Other intervertebral disc degeneration, lumbar region M51.36 ; emt intermediate (current) use of anticoagulants Z79.01 ; Spondylosis without myelopathy or radiculopathy, lumbosacral region M47.817 ; Chronic pain syndrome G89.4 and 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 ASSESSMENTS Encounter Date Diagnosis Assessment Notes Treatment Notes Treatment Clinical Notes 04/13/2025 Spondylosis without myelopathy or radiculopathy, lumbar region (ICD-10 - M47.816) 04/13/2025 Sacroiliitis, not elsewhere classified (ICD-10 - M46.1) 04/13/2025 Radiculopathy, lumba r region (ICD-10 - M54.16) 04/13/2025 Radiculopathy, cervical region (ICD-10 - M54.12) 04/13/2025 Radiculopathy, lumbosacral region (ICD-10 - M54.17) 04/13/2025 Spinal stenosis, lumbar region with neurogenic claudication (ICD-10 - M48.062) 04/13/2025 Other intervertebral disc degeneration, 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
--- OUTSIDE RECORDS SUMMARY | 2025-04-22 14:34 | XMS_ITS | Clinical Summary ---
Author Organization [facility] Address [address] [place] [address] Phone Care Team Providers Care Culinary Chef Name Role Phone Provider, Unknown Primary Care Provider Unavaila ble Allergies Active Allergy Reactions Criticality Noted Date Comments Codejace Hives 07/21/2021 Medications No known medications Social History Tobacco Use Types Packs/Day Years Used Date Smoking Tobacco: Never Smokeless Tobacco: Never Alcohol Use Standard Drinks/Week Comments Not Currently 0 (1 standard drink = 0.6 oz pur e alcohol) Sex and Gender Information Value Date Recorded Sex Assigned at Not on file Legal Sex Male 9:25 PM CDT Gender Identity Not on file Sexual Orientation Not on file Last Filed Vital Signs Vital Sign Reading Time Taken Comments Blood Pressure 148/85 07/21/2021 2:47 AM CDT Pulse 98 07/21/2021 2:47 AM CDT Temperature 36.6 C (97.9 F) 07/21/2021 1:07 AM CDT Respiratory Rate 18 07/21/2021 2:47 AM CDT Oxygen Saturation 98% 07/21/2021 2:47 AM CDT Inhaled Oxygen Concentration - - Weight 117.9 kg (260 lb) 07/21/2021 1:07 AM CDT Height 177.8 cm (5' 10 ) 07/21/2021 1:07 AM CDT Body Mass Index 37.31 07/21/2021 1:07 AM CDT Plan of Treatment Health Maintenance Due Date Last Done Comments Hepatitis C Virus (HCV) Screening 1935 TdaP Immunization 1935 Pneumococcal Immunization (50+ years) (1 of 1 - PCV) 1987 Zoster Immunization (1 of 2) 1987 Respiratory Syncytial Virus (RSV) Immunization (Adult) (1 - 1-dose 75+ series) 2012 Influenza Immunization (#1) 2024 SARS-COV-2 Immunization ( season) 2024 06/18/2022, 11/15/2021, 03/03/2021, Additional history exists DTaP/Tdap/Td Immunization Discontinued 09/26/2014 Hepatitis B Immunization Aged Out No longer eligible based on patient's age to complete this topic Meningococcal Immunization (ACWY) Aged Out No longer eligible based on patient's age to complete this topic Rotavirus Immunization Aged Out No lo nger eligible based on patient's age to complete this topic Insurance MEDICARE Care Teams Culinary Chef Relationship Specialty Start Date End Date Provider, Unknown UNKNOWN PCP - General 07/21/21
== END 2025-04-22 14:24 | disposition home or self-care (01) ==
PROVIDERS: Visit Provider Otolaryngology
DX: J32.0 Chronic maxillary sinusitis (principal); K21.9 Gastro-esophageal reflux disease without esophagitis
CPT/HCPCS: 70486